=== PATIENT | male | born 1950 | race Caucasian/White ===

== ENCOUNTER → 2016-06-10 | Outpatient (CLI) | payer OTHER ==
[~2016-06-10] MED LIST: ACET-1256 PO; ASPI81TA21 PO; ATOR10TA82 PO; CALC600T9 PO; LISI10TA PO; OPTIRAY 320 IV PRN; [UNRECOGNIZED DRUG - CODE] PO
--- NOTE | 2016-06-10 12:02 | DIAGNOSTIC IMAGING REPORT ---
CHEST, ABDOMEN, and PELVIS CTA for AORTIC DISSECTION CT DOSE: 2291.43 mGy.cm HISTORY: Follow-up study. Aortic dissection repair. TECHNIQUE: Multiaxial CT images of the chest, abdomen, and pelvis were performed both before and after the intravenous administration of contrast to evaluate the aorta. Maximal intensity projection images were also obtained. COMPARISON STUDY: Chest abdomen and pelvis CTA 01/31/2016. FINDINGS: Patient is status post stent repair of a type B aortic dissection. The stent extends from the distal aortic arch through the mid descending thoracic aorta. The ascending thoracic aorta is normal in course and caliber with no evidence for dissection. No filling defects within the main pulmonary arteries to suggest pulmonary embolus. At the distal end of the aortic stent there is a focal outpouching of contrast within the false lumen. This measures 2.2 cm and is consistent with a partially opacified false lumen. The remaining portions of the false lumen of the dissection within the descending thoracic aorta and proximal abdominal aorta are thrombosed. There is additional segment of the proximal to mid abdominal aorta which opacifies the false lumen. This false lumen within the proximal abdominal aorta results in perfusion of the right renal artery. Best seen on axial image 134 of 318 within the chest there is a tiny blush of contrast within the aneurysm sac of the descending thoracic aorta at the level of the esperanza. This is consistent with a tiny type II endoleak from a small thoracic spinal vessel. Moderate focal narrowing at the origin of the celiac artery. The superior mesenteric artery, left renal artery, and inferior mesenteric artery remains patent. Aneurysmal dilatation of the proximal descending thoracic aorta remains unchanged. This measures a maximal diameter of 4.8 cm. The aneurysmal dilatation at the distal descending thoracic aorta/proximal abdominal aorta is also stable. This currently measures 4.7 cm. There is a left retroaortic renal vein. Bilateral common iliac arteries are patent. No pneumothorax or pleural effusions. The central airways are patent. No new focal lung consolidations. Multiple scattered subpleural nodules are again noted within the lung bases and along the right minor fissure. These are unchanged compared to the prior study. Dominant subpleural nodule is seen within the base of the left lower lobe and measures 6 mm. There is also stable 6 mm nodule within the right middle lobe. No acute fractures within the visualized osseous structures. No mediastinal or hilar lymphadenopathy. Multiple hypodense lesions within the liver are not significantly changed. The dominant lesion within the right hepatic lobe measures 11 mm. Prior cholecystectomy. The spleen, adrenal glands, and pancreas are unremarkable. The kidneys enhance normally. No renal stones or hydronephrosis. Normal bladder. Coarse calcifications within the prostate gland. Colonic diverticulosis. No bowel wall thickening or obstruction. IMPRESSION: 1. Patient is status post stent repair of a type B aortic dissection. The stent extends from the distal aortic arch through the mid descending thoracic aorta. The ascending thoracic aorta is normal in course and caliber with no evidence for dissection. 2. Aneurysmal dilatation at the distal aortic arch/proximal descending thoracic aorta remains unchanged. There is evidence for a tiny type II endoleak at the proximal to mid descending thoracic aorta as described above. The aneurysmal dilatation involving the distal descending thoracic aorta and proximal abdominal aorta is also stable with no evidence for an endoleak at this location. 3. The majority of the false lumen within the dissection at the descending thoracic aorta remains thrombosed. 4. No evidence for central pulmonary embolus. 5. Multiple subcentimeter bilateral nodules remain stable. Electronically signed by: Branden Pat M.D. 06/10/2016 12:00 PM Dictated Date/Time: 06/10/2016 11:33 AM
== END | disposition home or self-care (01) ==
LOC: C.CTS 10:32
PROVIDERS: ATTEND Surgery Vascular Surgery
DX: I71.4 Abdominal aortic aneurysm, without rupture (principal); I71.01 Dissection of thoracic aorta; I74.11 Embolism and thrombosis of thoracic aorta

== ENCOUNTER → 2016-07-15 | Outpatient (CLI) | payer OTHER ==
[~2016-07-15] MED LIST changes: -OPTIRAY 320 IV PRN
[2016-07-15 09:31] LABS: BASO % 0.3 %; BASO ABS # 0.02 K/uL (0-0.2); COMPLETE YES; EOS % 2.3 %; HEMATOCRIT 46.8 % (42-52); IG% 0.3 %; LYMPH % 35.3 %; LYMPH ABS # 2.75 K/uL (1.2-3.4); MEAN CELL VOLUME 89.5 fL (80-100); MEAN CORPUSCULAR HEMOGLOBIN 29.8 pg (25-34); MEAN CORPUSCULAR HGB CONC 33.3 g/dl (32-36); MEAN PLATELET VOLUME 10.6 fL (7.4-10.4); MONO % 9.4 %; NEUT % 52.4 %; PLATELET COUNT 290 K/uL (130-400); RED BLOOD COUNT 5.23 M/uL (4.7-6.1); WHITE BLOOD COUNT 7.79 K/uL (4.8-10.8)
[2016-07-15 09:54] LABS: ALT/SGPT 26 U/L (12-78); AST/SGOT 17 U/L (15-37); BLOOD UREA NITROGEN 18 mg/dl (7-18); BUN/CREATININE RATIO 20.2 (10-20); CALCIUM 9.1 mg/dl (8.5-10.1); CARBON DIOXIDE 32 mmol/L (21-32); CHLORIDE 102 mmol/L (98-107); GLUCOSE 103 mg/dl (70-99); POTASSIUM 3.9 mmol/L (3.5-5.1); SODIUM 137 mmol/L (136-145)
[2016-07-15 09:57] LABS: ALB/GLOB RATIO 1.1 (0.9-2); ALKALINE PHOSPHATASE 94 U/L (45-117); CHOLESTEROL 114 mg/dl (0-200); CHOLESTEROL/HDL RATIO 3.6; HDL CHOLESTEROL 32 mg/dl; LDL CHOLESTEROL CALCULATED 52 mg/dl; TRIGLYCERIDES 149 mg/dl (0-150); VERY LOW DENSITY LIPOPROT CALC 30 mg/dl
== END | disposition home or self-care (01) ==
LOC: C.LAB 06:35
PROVIDERS: ATTEND Internal Medicine Geriatric Medicine
DX: I10 Essential (primary) hypertension (principal); E78.5 Hyperlipidemia, unspecified; I72.3 Aneurysm of iliac artery; R73.9 Hyperglycemia, unspecified; I71.4 Abdominal aortic aneurysm, without rupture

== ENCOUNTER → 2017-01-14 | Outpatient (CLI) | payer OTHER ==
--- NOTE | 2017-01-14 11:11 | DIAGNOSTIC IMAGING REPORT ---
L-SPINE MIN 4 VIEWS ROUTINE HISTORY: 66 years-old Male M54.5 Low back [id number] acute low back pain COMPARISON: CT 06/10/2016 TECHNIQUE: 5 views of the lumbar spine FINDINGS: 5 nonrib-bearing lumbar type vertebral segments are present. No evidence of spondylolysis or spondylolisthesis. Multilevel endplate spurring and facet arthropathy with severe facet disease of the lower lumbar spine. There is unchanged 6 mm retrolisthesis L2 on L3 with unchanged severe intervertebral disc space narrowing at L4-L5 and L5-S1. Chronic 6 mm anterolisthesis L5 on S1, likely secondary to severe long-standing facet arthropathy. No acute compression deformity. Atherosclerosis of the aorta with a fusiform appearing aneurysmal dilation measuring up to 3.5 cm within the infrarenal portion. Cholecystectomy clips are noted. IMPRESSION: 1. No acute fracture or subluxation. 2. Multilevel facet arthropathy and intervertebral disc space narrowing as above appears unchanged. 3. Aneurysmal dilation of the abdominal aorta again seen, 3.5 cm. The above report was generated using voice recognition software. It may contain grammatical, syntax or spelling errors. Electronically signed by: Gray Guerrero M.D. 01/14/2017 11:09 AM Dictated Date/Time: 01/14/2017 11:06 AM
== END | disposition home or self-care (01) ==
LOC: C.RAD 10:31
PROVIDERS: ATTEND Internal Medicine Geriatric Medicine
DX: M54.5 Low back pain (principal)

== ENCOUNTER → 2017-01-28 | Outpatient (CLI) | payer OTHER ==
[2017-01-28 17:50] LABS: BASO % 0.3 %; BASO ABS # 0.02 K/uL (0-0.2); COMPLETE YES; EOS % 2.4 %; HEMATOCRIT 46.5 % (42-52); IG% 0.4 %; LYMPH % 33.2 %; LYMPH ABS # 2.62 K/uL (1.2-3.4); MEAN CELL VOLUME 90.5 fL (80-100); MEAN CORPUSCULAR HEMOGLOBIN 30.2 pg (25-34); MEAN CORPUSCULAR HGB CONC 33.3 g/dl (32-36); MEAN PLATELET VOLUME 10.5 fL (7.4-10.4); MONO % 12.1 %; NEUT % 51.6 %; PLATELET COUNT 300 K/uL (130-400); RED BLOOD COUNT 5.14 M/uL (4.7-6.1); WHITE BLOOD COUNT 7.88 K/uL (4.8-10.8)
[2017-01-28 17:50] LABS: URINE APPEARANCE CLEAR (CLEAR); URINE BILIRUBIN NEG (NEG); URINE COLOR YELLOW; URINE NITRITE NEG (NEG); URINE PH 6.5 (4.5-7.5); URINE SPECIFIC GRAVITY 1.021 (1.000-1.030); UROBILINOGEN NEG (NEG); ZZUR CULT IF INDIC CLEAN CATCH NO
[2017-01-28 17:55] LABS: MANUAL MICROSCOPIC REQUIRED? NO; REVIEW REQ? NO
[2017-01-28 17:55] LABS: BLOOD UREA NITROGEN 22 mg/dl (7-18); BUN/CREATININE RATIO 23.8 (10-20); CALCIUM 9.9 mg/dl (8.5-10.1); CARBON DIOXIDE 31 mmol/L (21-32); CHLORIDE 101 mmol/L (98-107); CREATININE 0.91 mg/dl (0.60-1.40); GLUCOSE 131 mg/dl (70-99); POTASSIUM 3.6 mmol/L (3.5-5.1); SODIUM 135 mmol/L (136-145)
[2017-01-28 18:00] LABS: PROSTATE SPECIFIC ANTIGEN 0.958 ng/ml (0.000-4.000)
[2017-01-29 06:52] LABS: ESTIMATED AVERAGE GLUCOSE 126 mg/dl; HA1C FLAG Normal (Normal)
== END | disposition home or self-care (01) ==
LOC: C.LABPBG 14:07
PROVIDERS: ATTEND Internal Medicine Geriatric Medicine
DX: I10 Essential (primary) hypertension (principal); R73.9 Hyperglycemia, unspecified; M54.5 Low back pain; I71.4 Abdominal aortic aneurysm, without rupture

== ENCOUNTER → 2017-02-06 | Outpatient (CLI) | payer OTHER ==
[~2017-02-06] MED LIST changes: +GADAVIST IV PRN; +OPTIRAY 320 IV PRN
--- NOTE | 2017-02-06 16:14 | DIAGNOSTIC IMAGING REPORT ---
ANGIO ABD/PELVIS WITH CONTRAST CLINICAL HISTORY: 66 years-old Male with AAA , LOWER BACK PAIN acute lower back pain with history of abdominal aortic aneurysm. Status post stent graft repair of a type B aortic dissection COMPARISON STUDY: CTA 06/10/2016 TECHNIQUE: Following the IV administration of 93 cc of Optiray 320, CT angiogram of the abdomen and pelvis was performed from the lung bases the proximal femora. Images are reviewed in the axial, sagittal, and coronal planes. 3-D MIPS images are created and assessed. IV contrast was administered without complication. A dose lowering technique was utilized adhering to the principles of ALARA. CT DOSE: 794.11 mGy.cm FINDINGS: CTA: The imaged pulmonary arterial tree is unremarkable. Imaged inferior cardiac chambers demonstrate no acute abnormality. Coronary arterial calcifications are noted. The imaged descending thoracic aorta appears normal in course and caliber. Partially imaged stent graft involving the descending thoracic aorta is noted. Aneurysmal dilation of the distal thoracic aorta at the level of the diaphragmatic hiatus is unchanged, 4.6 cm transversely. Type B aortic dissection with the majority of the false lumen thrombosed is again seen. Flow within the false lumen is again noted at the level of the renal arteries. The right renal artery emanates from the false lumen and the left renal artery emanates from the true lumen as does the celiac, superior mesenteric and inferior mesenteric arteries. The dissection flap extends 5.6 cm proximal to the aortic bifurcation. These findings are unchanged. Aneurysmal dilation of the infrarenal abdominal aorta is unchanged, 3.1 x 3.1 cm. At least moderate mixed plaquing of the aorta and iliofemoral vascularity is again seen. The bilateral common and external iliac arteries and image femoral arteries are patent. There is less than 50% narrowing involving the origin of the celiac trunk secondary to atherosclerotic plaquing. Superior mesenteric artery appears unremarkable. Bilateral renal arteries are widely patent. CT ABDOMEN/PELVIS: There are several scattered noncalcified pulmonary nodules of the lung bases, largest within the left lower lobe measuring up to 7 mm. Largest within the right middle lobe measure up to 4 mm. These appear stable from comparison chest CT. No pneumatosis or pneumoperitoneum. Multiple low attenuating lesions scattered throughout the liver are unchanged suggesting possible hepatic cysts. Prior cholecystectomy. The spleen, pancreas and adrenal glands are within normal limits. Minimal nonspecific symmetric bilateral perinephric stranding without renal calculi or hydronephrosis. Ureters are within normal limits. Circumferential wall thickening of the bladder with prostamegaly and central calcifications of the prostate. There is no bulky adenopathy. No bowel obstruction or focal bowel wall thickening. Mild colonic diverticulosis without diverticulitis. Soft tissues are within normal limits. Degenerative changes are seen within the lumbar spine severe intervertebral disc space narrowing at L4-L5 and L5-S1 with advanced facet arthropathy. IMPRESSION: 1. Stable exam with partially imaged endograft involving the distal descending thoracic aorta again noted status post repair of type B aortic dissection. Aneurysmal dilation of the descending thoracic aorta and abdominal aorta is unchanged. 2. The majority of the false lumen is again thrombosed with opacified false lumen noted within the upper abdomen. The right renal artery is again seen emanating from the false lumen and is patent. 3. Prostamegaly with evidence of chronic bladder outlet obstruction. 4. Mild colonic diverticulosis without diverticulitis. 5. Prior cholecystectomy. 6. Additional findings as above. The above report was generated using voice recognition software. It may contain grammatical, syntax or spelling errors. Electronically signed by: Gray Guerrero M.D. 02/06/2017 4:12 PM Dictated Date/Time: 02/06/2017 3:58 PM
--- NOTE | 2017-02-06 17:04 | DIAGNOSTIC IMAGING REPORT ---
MRI OF THE LUMBAR SPINE WITH AND WITHOUT CONTRAST CLINICAL HISTORY: Low back pain radiating into left lower extremity. Back injury in December 2016. COMPARISON STUDY: Lumbar spine radiographs January 14, 2017. TECHNIQUE: Utilizing a 1.5 Pooja magnet and dedicated coil, multiplanar, multiecho imaging of the lumbar spine was performed before and after uneventful IV administration of 9 mL of Gadavist. FINDINGS: For purposes of numbering on this exam, the L5-S1 disc space is assigned to axial image 26 of 31. There is 6 mm anterolisthesis of L5 on S1. The conus terminates at the T12-L1 level. There is no intracanalicular mass or fluid collection. No suspicious marrow replacement is present. There is marked disc space narrowing at L5-S1. A known aortic dissection with aneurysmal dilatation is better depicted on the CTA of the abdomen and pelvis performed earlier today. L1-2: The central canal and neural foramen are patent. There is mild facet arthrosis. L2-3: There is mild disc bulge. Ligamentous hypertrophy and facet arthrosis are present. Central canal and neural foramen are patent. L3-4: There is severe facet arthrosis. There is minimal disc bulge. Note is made of a small left-sided synovial cyst along the left aspect of the sac measures 8 x 3 mm. There is no significant central canal stenosis. Neural foramen are patent. L4-5: There is disc space narrowing with mild posterior disc osteophyte complex. There is moderate facet arthrosis. Central canal is patent. Neural foramen are patent. L5-S1: There is grade I anterolisthesis. Severe facet arthrosis is noted. Central canal is patent. There is moderate left and mild right neural foraminal stenosis. IMPRESSION: 1. Grade I anterolisthesis of L5 on S1 with marked disc space narrowing at L5-S1. Patent central canal. Mild multilevel disc bulges. 2. Moderate left neural foraminal stenosis at L5-S1. Otherwise, mild multilevel neural foraminal stenosis. 3. No lumbar spine compression fracture. No marrow replacement. 4. Small intracanalicular synovial cyst along the left aspect of the thecal sac at the L3-L4 level. No significant central canal narrowing. Electronically signed by: Sim Pa M.D. 02/06/2017 5:03 PM Dictated Date/Time: 02/06/2017 4:44 PM
== END | disposition home or self-care (01) ==
LOC: C.CTS 14:57
PROVIDERS: ATTEND Internal Medicine Geriatric Medicine
DX: I71.4 Abdominal aortic aneurysm, without rupture (principal); N40.1 Benign prostatic hyperplasia with lower urinary tract symptoms; N32.0 Bladder-neck obstruction; M54.5 Low back pain; K57.90 Diverticulosis of intestine, part unspecified, without perforation or abscess without bleeding

== ENCOUNTER → 2017-06-04 | Outpatient (CLI) | payer OTHER ==
[~2017-06-04] MED LIST changes: -ACET-1256 PO; +ACET-1693 PO; +ASPI-319 PO; -ASPI81TA21 PO; -GADAVIST IV PRN; -OPTIRAY 320 IV PRN; +TRAM-10 PO
[2017-06-04 09:45] LABS: BLOOD UREA NITROGEN 16 mg/dl (7-18); CREATININE 0.82 mg/dl (0.60-1.40)
== END | disposition home or self-care (01) ==
LOC: C.LAB 06:29
PROVIDERS: ATTEND Physician Assistant
DX: I71.01 Dissection of thoracic aorta (principal); I71.4 Abdominal aortic aneurysm, without rupture

== ENCOUNTER → 2017-06-11 | Outpatient (CLI) | payer OTHER ==
[~2017-06-11] MED LIST changes: +OPTIRAY 320 IV PRN
--- NOTE | 2017-06-11 08:29 | DIAGNOSTIC IMAGING REPORT ---
CHEST CTA for AORTIC DISSECTION CT DOSE: 1959.48 mGy.cm HISTORY: DISSECTION OF THORACIC AORTIC, abdominal AORTIC ANEURYSM TECHNIQUE: Multiaxial CT images of the chest were performed both before and after the intravenous administration of contrast to evaluate the aorta. Maximal intensity projection images were also obtained. A dose lowering technique was utilized adhering to the principles of ALARA. COMPARISON STUDY: Chest CTA 06/10/2016. FINDINGS: Patient is status post stent repair of a type B aortic dissection. The stent extends from the distal aortic arch through the mid descending thoracic aorta. The ascending thoracic aorta is normal in course and caliber with no evidence for dissection. No filling defects within the main pulmonary arteries to suggest pulmonary embolus. At the distal end of the aortic stent there is a focal outpouching of contrast within the false lumen. This measures 2.2 cm and is consistent with a partially opacified false lumen. The remaining portions of the false lumen of the dissection within the descending thoracic aorta and proximal abdominal aorta are thrombosed. There is additional segment of the proximal to mid abdominal aorta which opacifies the false lumen. This false lumen within the proximal abdominal aorta results in perfusion of the right renal artery. Best seen on axial image 134 of 318 within the chest there is a tiny blush of contrast within the aneurysm sac of the descending thoracic aorta at the level of the esperanza. This is consistent with a tiny type II endoleak from a small thoracic spinal vessel. Moderate focal narrowing at the origin of the celiac artery. The superior mesenteric artery, left renal artery, and inferior mesenteric artery remains patent. Aneurysmal dilatation of the proximal descending thoracic aorta has slightly increased in measure 5.1 cm. This previous measured 4.8 cm. The aneurysmal dilatation at the distal descending thoracic aorta/proximal abdominal aorta is stable. This currently measures 4.7 cm.No pneumothorax or pleural effusions. The central airways are patent. No new focal lung consolidations. Multiple scattered pulmonary nodules are again noted within the lung bases and along the right minor fissure. These are unchanged compared to the prior study. Dominant subpleural nodule is seen within the base of the left lower lobe and measures 6 mm. There is also stable 7 mm nodule within the right middle lobe. No acute fractures within the visualized osseous structures. No mediastinal or hilar lymphadenopathy. Multiple hypodense lesions within the liver are not significantly changed. Cholecystectomy. IMPRESSION: 1. Patient is status post stent repair of a type B aortic dissection. The stent extends from the distal aortic arch through the mid descending thoracic aorta. The ascending thoracic aorta is normal in course and caliber with no evidence for dissection. 2. Aneurysmal dilatation at the distal aortic arch/proximal descending thoracic aorta is again noted. This has slightly progressed at the distal aortic arch which currently measures 5.1 cm, previously measuring 4.8 cm. Although not currently seen on this study due to the lack of delayed sequences, there was a previously described type II endoleak at this location which may account for the slight growth of the aneurysmal sac. The aneurysmal dilatation involving the distal descending thoracic aorta and proximal abdominal aorta remains unchanged. 3. The majority of the false lumen within the dissection at the descending thoracic aorta remains thrombosed. 4.Multiple subcentimeter bilateral pulmonary nodules remain stable. Electronically signed by: Branden Pat M.D. 06/11/2017 8:27 AM Dictated Date/Time: 06/11/2017 8:05 AM
--- NOTE | 2017-06-11 08:31 | DIAGNOSTIC IMAGING REPORT ---
ANGIO ABD/PELVIS COMBO CLINICAL HISTORY: 67 years-old Male presenting with DISSECTION OF THORACIC Aortic, abd AORTIC ANEURYSM. TECHNIQUE: Multidetector CT angiography of the abdomen and pelvis was performed after the administration of intravenous contrast. 3-D volumetric and/or maximum intensity projection (MIP) images were subsequently reconstructed for review. IV contrast: 93 mL of Optiray 320. A dose lowering technique was used consistent with the principles of ALARA (as low as reasonably achievable). Stenosis measurements were based on NASCET-like criteria. COMPARISON: 02/06/2017. CT DOSE (mGy.cm): The estimated cumulative dose is 1959.48. 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 Cholecystectomy clips. Vasculature: Aorta: Diffuse atherosclerotic disease. Chronic dissection of the thoracoabdominal aorta. The maximum diameter measures 4.1 cm, previously 4.5 cm. The false lumen is occluded from the aortic hiatus to the level of the right renal artery, where the false lumen is opacified with contrast. The false lumen remains partially opacified to the level of the L3 lumbar arteries. Below this level, the dissection flap terminates. Ectasia of the abdominal aorta immediately proximal to the bifurcation, measuring 2.1 cm in diameter. Multifocal areas within the false lumen of hyperdensity suggesting partial filling via collateral vessels. This is similar to prior exam. Celiac artery: Patent arising from the true lumen. Superior mesenteric artery: Patent arising from the true lumen. Inferior mesenteric artery: Patent arising from the true lumen. Right renal artery: Single right main renal artery arises from the false lumen and is patent. Minimal stenosis at the origin (less than 25%). Left renal artery: Single left main renal artery is patent arising from the true lumen. Right iliac arteries: Penetrating ulcer arising from the posterior medial aspect of the right common iliac artery projecting 8 mm beyond the expected contour of the parent vessel and measuring 11 mm in width (series 9 image 325). This is similar to prior exam. Right internal and external iliac arteries patent. Right femoral arteries: Common, superficial, and deep femoral arteries patent. Left iliac arteries: Left common, internal, and external iliac arteries patent. Left femoral arteries: Common, superficial, and deep femoral arteries patent. Remaining abdomen and pelvis: Lung bases: Minimal basilar opacities, likely atelectasis. Normal heart size. Coronary artery calcification. No pericardial or pleural effusion. Liver: Normal morphology. Allowing for early arterial phase of contrast, multiple well-defined hypodensities throughout the liver suggestive of hepatic cysts or hamartomas. These are unchanged from prior. Conventional hepatic arterial anatomy Biliary: Mild biliary ductal prominence likely a reservoir effect in the post cholecystectomy state. Gallbladder surgically absent. Pancreas: Mild parenchymal atrophy. Spleen: Normal. Adrenal glands: Normal. Kidneys and ureters: Normal. No hydronephrosis. Bladder: Incompletely evaluated secondary to underdistention. Pelvic organs: Prostate enlargement likely secondary to benign prostatic hyperplasia. Bowel: Normal. No bowel obstruction. Peritoneal cavity: No free fluid or intraperitoneal gas. Lymph nodes: No enlarged lymph nodes in the abdomen or pelvis. Abdominal wall: Small fat-containing right inguinal hernia. Musculoskeletal: Degenerative changes of the spine. 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 The false lumen remains patent at the level of the right renal artery, which is the only main vessel to arise from the false lumen. Overall aneurysmal dilatation of the aorta is unchanged from prior. 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 Electronically signed by: Ministerio Verduzco M.D. 06/11/2017 8:30 AM Dictated Date/Time: 06/11/2017 8:12 AM
== END | disposition home or self-care (01) ==
LOC: C.CTS 07:06
PROVIDERS: ATTEND Physician Assistant
DX: I71.01 Dissection of thoracic aorta (principal); I71.4 Abdominal aortic aneurysm, without rupture

== ENCOUNTER 2017-07-03 11:59 | Emergency (ER) | payer OTHER ==
[~2017-07-03] VITALS: Ht 182.9 cm; Wt 93.3 kg
[~2017-07-03 11:59] MED LIST changes: +ACET-1256 PO; -ACET-1693 PO; -OPTIRAY 320 IV PRN; -TRAM-10 PO
[2017-07-03 12:01] VITALS: Ht 182.9 cm; Wt 93.3 kg
[2017-07-03 12:36] VITALS: O2SAT 98
[2017-07-03] MEDS ORDERED: ONDANSETRON INJ 2 MG/ML 2 ML VIAL IV STA (12:50)
--- NOTE | 2017-07-03 13:12 | DIAGNOSTIC IMAGING REPORT ---
SINGLE VIEW CHEST CLINICAL HISTORY: Dyspnea. FINDINGS: An AP, portable, upright chest radiograph is compared to study dated 03/06/2015. The examination is degraded by portable technique and patient rotation. The cardiac silhouette is normal for projection. The pulmonary vasculature is noncongested. A stent graft is noted in the thoracic aorta which appears ectatic. There is minimal bibasilar atelectasis. The lungs and pleural spaces are otherwise clear. No pneumothorax is seen. The skeletal structures are osteopenic. The bony thorax is grossly intact. IMPRESSION: No acute cardiopulmonary abnormality. Electronically signed by: Aristides Hendrickson M.D. 07/03/2017 1:10 PM Dictated Date/Time: 07/03/2017 1:09 PM
[2017-07-03 13:13] LABS: BASO % 0.1 %; BASO ABS # 0.01 K/uL (0-0.2); EOS % 0.9 %; EOS ABS # 0.08 K/uL (0-0.5); HEMATOCRIT 43.7 % (42-52); HEMOGLOBIN 15.5 g/dL (14.0-18.0); IG# 0.06 K/uL (0.00-0.02); LYMPH % 16.9 %; LYMPH ABS # 1.54 K/uL (1.2-3.4); MEAN CELL VOLUME 90.1 fL (80-100); MEAN CORPUSCULAR HGB CONC 35.5 g/dl (32-36); MEAN PLATELET VOLUME 9.7 fL (7.4-10.4); MONO % 9.8 %; MONO ABS # 0.89 K/uL (0.11-0.59); NEUT % 71.6 %; NEUT ABS # 6.52 K/uL (1.4-6.5); PLATELET COUNT 245 K/uL (130-400); RED CELL DISTRIBUTION WIDTH CV 12.9 % (11.5-14.5); RED CELL DISTRIBUTION WIDTH SD 42.7 fL (36.4-46.3)
[2017-07-03 13:19] LABS: PTT PATIENT 25.4 SECONDS (21.0-31.0)
[2017-07-03 13:21] LABS: BLOOD UREA NITROGEN 16 mg/dl (7-18); CALCIUM 9.7 mg/dl (8.5-10.1); CARBON DIOXIDE 28 mmol/L (21-32); CREATININE 0.83 mg/dl (0.60-1.40); GLUCOSE 119 mg/dl (70-99); POTASSIUM 3.7 mmol/L (3.5-5.1); SODIUM 137 mmol/L (136-145)
[2017-07-03 13:22] LABS: ISTAT CREATININE 0.7 mg/dl (0.6-1.3); ISTAT IONIZED CALCIUM 1.2 mmol/l (1.12-1.32); ISTAT POTASSIUM 3.5 mEq/L (3.3-5.0)
--- NOTE | 2017-07-03 13:28 | EMERGENCY ROOM VISIT NOTE ---
History Report prepared by Jocelyn: Edilberto Cohn Under the Supervision of: Dr. Robles Nelson M.D. First contact with patient: 12:33 Chief Complaint: SHORTNESS OF BREATH Stated Complaint: SWEATING AND SOB Nursing Triage Summary: pt reports being on gabapentinb tid and last taken friday night ran out did not call them in until this am. feels "funny" trouble getting breath while lying down intermittently. denies any swelling in ext. goes to pain management for back pain. has hx of aortic disection with stents placed History of Present Illness The patient is a 67 year old white male with a past medical history of a dissection with repair and cardiac stent placement and bypass graft, who presents to the Emergency Room with complaints of shortness of breath that was first noticed this morning. The patient states that this morning he intermittently felt the need to "take a deep breath." He denies any chest pain, nausea, or vomiting, but does note that he got swaty. The patient does have a history of dissection, but notes that these symptoms are not similar to what he felt on that episode. The patient does note that he takes Gabapentin daily, and ran out of this prescription on Friday night. Source of History: patient Onset: This morning Position: chest Quality: other (SOB) Timing: intermittent Associated Symptoms: + diaphoresis, No chest pain, No nausea, No vomiting Review of Systems See HPI for pertinent positives and negatives. A total of ten systems were reviewed and were otherwise negative. Past Medical & Surgical Medical Problems: (1) Aneurysm Surgical Problems: (1) Hx of heart artery stent Family History No significant family history Social History Smoking Status: Never Smoker Alcohol Use: none Drug Use: none Marital Status: Housing Status: lives with significant other Occupation Status: retired Current/Historical Medications Scheduled Aspirin Enteric Coated (Ecotrin Or Generic), 81 MG PO QAM Atorvastatin (Lipitor), 10 MG PO QAM Calcium Carbonate-Vitamin D (Calcium + D), 600 MG PO QAM Chlorthalidone/Atenolol (Atenolol/Chlorthalidone 100/25MG), 1 TAB PO QAM Lisinopril (Prinivil), 20 MG PO BID Scheduled PRN Acetaminophen (Tylenol), 1,000 MG PO TID PRN for Pain Allergies Coded Allergies: Labetalol (Verified Allergy, Intermediate, itching and rash, 07/03/17) Losartan (Verified Allergy, Unknown, ITCHING, 07/03/17) Thiazide-Type Diuretics (Verified Allergy, Unknown, SEVERE ITCHING, 07/03/17 ) Sulfa Antibiotics (Verified Adverse Reaction, Mild, GI DISTRESS, 07/03/17) Physical Exam Vital Signs Date Time Temp Pulse Resp B/P (MAP) Pulse Ox O2 Delivery O2 Flow Rate FiO2 07/03/17 16:15 82 20 119/67 91 07/03/17 15:19 71 16 106/64 96 Room Air 07/03/17 14:24 36.7 69 18 136/86 96 Room Air 07/03/17 13:55 67 20 127/77 95 Room Air 07/03/17 13:15 66 18 133/70 94 Room Air 07/03/17 12:47 66 07/03/17 12:36 98 Room Air 07/03/17 12:01 36.6 73 18 127/81 98 Room Air Physical Exam GENERAL: Awake, alert, well-appearing, NAD HENT: Normocephalic, atraumatic. EYES: Normal conjunctiva. Sclera non-icteric. PERRL. No anisocoria. NECK: Supple. No nuchal rigidity. FROM. RESPIRATORY: CTAB, no rhonchi, wheezing, crackles CARDIAC: RRR, no MRG ABDOMEN: Soft, NTND, BS+ MSK: No chest wall TTP, no LE edema. Negative Jocy's sign. NEURO: GCS 15, CN 2-12 intact, moves all 4s on command SKIN: No rash or jaundice noted. Medical Decision & Procedures ER Provider Diagnostic Interpretation: Radiology results as stated below per my review and radiologist interpretation: SINGLE VIEW CHEST CLINICAL HISTORY: Dyspnea. FINDINGS: An AP, portable, upright chest radiograph is compared to study dated 03/06/2015. The examination is degraded by portable technique and patient rotation. The cardiac silhouette is normal for projection. The pulmonary vasculature is noncongested. A stent graft is noted in the thoracic aorta which appears ectatic. There is minimal bibasilar atelectasis. The lungs and pleural spaces are otherwise clear. No pneumothorax is seen. The skeletal structures are osteopenic. The bony thorax is grossly intact. IMPRESSION: No acute cardiopulmonary abnormality. Electronically signed by: Aristides Hendrickson M.D. 07/03/2017 1:10 PM Dictated Date/Time: 07/03/2017 1:09 PM Laboratory Results 07/03/17 12:46 Red Blood Count 4.85, Mean Corpuscular Volume 90.1, Mean Corpuscular Hemoglobin 32.0, Mean Corpuscular Hemoglobin Concent 35.5, Mean Platelet Volume 9.7, Neutrophils (%) (Auto) 71.6, Lymphocytes (%) (Auto) 16.9, Monocytes (%) (Auto) 9.8, Eosinophils (%) (Auto) 0.9, Basophils (%) (Auto) 0.1, Neutrophils # (Auto) 6.52, Lymphocytes # (Auto) 1.54, Monocytes # (Auto) 0.89, Eosinophils # (Auto) 0.08, Basophils # (Auto) 0.01 07/03/17 12:46 Test 07/03/17 12:46 07/03/17 13:09 07/03/17 13:42 07/03/17 15:24 White Blood Count 9.10 K/uL (4.8-10.8) Red Blood Count 4.85 M/uL (4.7-6.1) Hemoglobin 15.5 g/dL (14.0-18.0) Hematocrit 43.7 % (42-52) Mean Corpuscular Volume 90.1 fL (80-100) Mean Corpuscular Hemoglobin 32.0 pg (25-34) Mean Corpuscular Hemoglobin Concent 35.5 g/dl (32-36) Platelet Count 245 K/uL (130-400) Mean Platelet Volume 9.7 fL (7.4-10.4) Neutrophils (%) (Auto) 71.6 % Lymphocytes (%) (Auto) 16.9 % Monocytes (%) (Auto) 9.8 % Eosinophils (%) (Auto) 0.9 % Basophils (%) (Auto) 0.1 % Neutrophils # (Auto) 6.52 K/uL (1.4-6.5) Lymphocytes # (Auto) 1.54 K/uL (1.2-3.4) Monocytes # (Auto) 0.89 K/uL (0.11-0.59) Eosinophils # (Auto) 0.08 K/uL (0-0.5) Basophils # (Auto) 0.01 K/uL (0-0.2) RDW Standard Deviation 42.7 fL (36.4-46.3) RDW Coefficient of Variation 12.9 % (11.5-14.5) Immature Granulocyte % (Auto) 0.7 % Immature Granulocyte # (Auto) 0.06 K/uL (0.00-0.02) Prothrombin Time 10.8 SECONDS (9.0-12.0) Prothromb Time International Ratio 1.0 (0.9-1.1) Activated Partial Thromboplast Time 25.4 SECONDS (21.0-31.0) Partial Thromboplastin Ratio 1.0 Est Creatinine Clear Calc Drug Dose 101.1 ml/min Estimated GFR () 104.8 Estimated GFR (Non- 90.4 BUN/Creatinine Ratio 19.8 (10-20) Calcium Level 9.7 mg/dl (8.5-10.1) Troponin I < 0.015 ng/ml (0-0.045) Pro-B-Type Natriuretic Peptide 41 pg/ml (0-900) Bedside Hemoglobin 14.6 g/dl (14.0-18.0) Bedside Hematocrit 43 % (42-52) Bedside Sodium 139 mEq/L (135-144) Bedside Potassium 3.5 mEq/L (3.3-5.0) Bedside Chloride 101 mEq/L (101-112) Bedside Total CO2 26 mEq/l (24-31) Anion Gap 18.0 mmol/L (16-25) Bedside Blood Urea Nitrogen 16 mg/dl (7-18) Bedside Creatinine 0.7 mg/dl (0.6-1.3) Bedside Glucose (other) 119 mg/dl (70-99) Bedside Ionized Calcium (Chey) 1.20 mmol/l (1.12-1.32) Venous Blood pH 7.44 (7.36-7.41) Venous Blood Partial Pressure CO2 41 mmHg (38.0-50.0) Venous Blood Partial Pressure O2 35 mmHg Venous Blood HCO3 27 mmol/L Venous Blood Oxygen Saturation 67.1 % Venous Blood Base Excess 2.9 mEq/L Lactic Acid Level 0.9 mmol/L (0.4-2.0) Bedside Troponin I < 0.030 ng/ml (0-0.045) Laboratory results reviewed by me Medications Administered Medications (Trade) Dose Ordered Sig/Katie Route Start Time Stop Time Status Last Admin Dose Admin Ondansetron HCl (Zofran Inj) 4 mg NOW STAT IV 07/03/17 12:50 07/03/17 12:52 DC 07/03/17 13:05 4 MG Acetaminophen (Tylenol Tab) 1,000 mg STK-MED ONCE .ROUTE 07/03/17 13:55 07/03/17 13:56 DC 07/03/17 13:57 1,000 MG Miscellaneous Information (Nursing Verbal Med Order) 1 ea ONE ONCE N/A 07/03/17 14:00 07/03/17 14:01 DC 07/03/17 13:58 1 EA ECG Per My Interpretation Indication: SOB/dyspnea Rate (beats per minute): 60 Rhythm: normal sinus Findings: no ectopy, other (Normal intervals, normal axis, no STS changes or TWI) ED Course 1242: The patient was evaluated in room B9. A complete history and physical exam was performed. 1444: I checked on the patient. He feels well. 1608: I reevaluated the patient. Discussed results and discharge instructions: He verbalized understanding and agreement. The patient is ready for discharge. Medical Decision The patient is a 67 year old white male with a past medical history of a dissection with repair and cardiac stent placement and bypass graft, who presents to the Emergency Room with complaints of shortness of breath that was first noticed this morning. Nursing notes reviewed. Ancillary studies and prior records reviewed. Differential diagnosis: Etiologies such as infections, reactive airway disease, pneumonia, pneumothorax , COPD, CHF, cardiac ischemia, pulmonary embolism, musculoskeletal, gastrointestinal, as well as others were entertained. Patient was seen and evaluated the bedside. Patient does have a prior history of an aortic dissection status post repair was a type B dissection which was repaired at [place]. Patient was recently seen and did have a CT scan and was given a relatively clean bill of health so to speak by Dr. Mccain with the vascular surgeons here at [facility]. The patient was complaining of some shortness of breath. No prior history of DVT or PE. No recent prolonged car or plane travel. Patient is not taking blood thinning medications. Patient is currently asymptomatic and denies any chest pains or shortness of breath. He did have a brief episode of some sweatiness. Patient did have blood work completed, EKG, troponin, chest x-ray the patient was given some IV fluids. Patient was feeling again fairly well. The patient had had some chronic back pain. He has received injections in the past. He did have a repeat troponin greater than 4 hours since the symptom onset of shortness of breath with a negative troponin. Given the patient's negative troponin x2 with a nonischemic EKG less likely ACS. We discussed possibility of blood clots however the patient has no other high risk features and has a well score 0. Less likely PE. Given the fact that the chest x-ray does not show any acute change in the graft and that the patient otherwise had a fairly normal CT scan last month and was seen by Dr. Mccain less likely problem with his prior dissection and graft. He was deemed suitable for outpatient follow-up and treatment at this time. Patient was given strict follow-up, discharge, and return precautions. All questions were answered. Patient was deemed suitable for outpatient follow-up at this time. Patient agreed with the plan of care and was safely discharged home. Medication Reconcilliation Current Medication List: was personally reviewed by me Blood Pressure Screening Patient's blood pressure: Normal blood pressure Impression Primary Impression: SOB (shortness of breath) Scribe Attestation The scribe's documentation has been prepared under my direction and personally reviewed by me in its entirety. I confirm that the note above accurately reflects all work, treatment, procedures, and medical decision making performed by me. Departure Information Dispostion Home / Self-Care Referrals Ld Hurtado M.D. (PCP) Patient Instructions ED Dyspnea Shortness of Breath, My [facility] Additional Instructions Please return to the emergency department if you have worsening or recurrent symptoms not amenable to at-home treatment. Please call for a follow-up appointment with her primary care physician. Please take your medications as prescribed. If you have other concerns and/or complaints please feel free to also call your primary care physician's office or return the ED for further evaluation, management, and treatment. Take your medications as prescribed. You have been examined and treated today on an emergency basis only. This is not a substitute for, or an effort to provide, complete comprehensive medical care. It is impossible to recognize and treat all injuries or illnesses in a single emergency department visit. It is therefore important that you follow up closely with [facility], your PCP, and/or your specialist(s). Call as soon as possible for an appointment. Thank you for your time and consideration. I look forward to speaking with you again soon. Please don't hesitate to call us if you have any questions.
[2017-07-03] MEDS ORDERED: ACETAMINOPHEN 500 MG TAB ONE (13:55)
[2017-07-03] MEDS ORDERED: NURSING VERBAL MED ORDER ONE (14:00)
[2017-07-03 14:24] VITALS: TEMP 36.7
[2017-07-03 16:15] VITALS: BP 119/67; PULSE 82; O2SAT 91
== END 2017-07-03 16:16 | disposition home or self-care (01) ==
LOC: C.EDB 12:00
DX: R06.02 Shortness of breath (principal); Z79.82 Long term (current) use of aspirin; Z79.899 Other long term (current) drug therapy; Z88.2 Allergy status to sulfonamides; Z88.8 Allergy status to other drugs, medicaments and biological substances

== ENCOUNTER 2020-07-05 08:16 | Inpatient (IN) ==
--- NOTE | 2020-06-27 09:09 | PAT Medication Instructions ---
Medication Instructions Date of Service June 27, 2020 Home Medications Medication Instructions Recorded lisinopril 20 mg tablet 20 mg PO BID #180 tab 04/25/20 amoxicillin 500 mg capsule 500 mg PO QID PRN aspirin 81 mg tablet 81 mg PO QAM lisinopril 20 mg tablet 20 mg PO BID atenolol-chlorthalidone 1 tab PO QAM atorvastatin 10 mg PO QAM calcium carbonate-vitamin D3 [Calcium 600 + D(3)] 1 tab PO QAM Continue as directed amoxicillin 500 mg capsule 500 mg PO QID PRN (prior to dental procedures) ASK your prescriber and surgeon aspirin 81 mg tablet 81 mg PO QAM DO NOT take the morning of surgery lisinopril 20 mg tablet 20 mg PO BID calcium carbonate-vitamin D3 [Calcium 600 + D(3)] 1 tab PO QAM Take morning of surgery With a small sip of water, OTHERWISE NOTHING TO EAT OR DRINK AFTER MIDNIGHT: atenolol-chlorthalidone 1 tab PO QAM atorvastatin 10 mg PO QAM Take evening before surgery lisinopril 20 mg tablet 20 mg PO BID Other Notes If you have any questions please call us at [phone] or [phone] or [phone] or [phone]
--- NOTE | 2020-06-30 10:47 | Anesthesiology Consultation ---
Date of Service June 30, 2020 Assessment & Plan (1) Encounter for pre-operative examination: - COVID screening: Per assessment on 06/30: Travel screen negative, no known COVID-19 positive contacts or current COVID-19 related symptoms. Surgeon arrange d preop COVID testing (done/to be done at surgeon's office 06/30) . Awaiting results. - Check BSG AM DOS - ASA instructions: to be continued perioperatively per surgeon - Case reviewed with Dr. Dumont. Chart Review Chart Review: Acceptable Risk for Surgery and Patient seen in Pre Admission Testing Teaching & Discussion Pre-Anesthesia Teaching/Discussion Notes: Instructed NPO after midnight before surgery,except medications with 15 cc of water. Medication instructions provided according to the PAT guidelines. History Surgery Operation Date: 07/05/20 10:05 Proposed Procedures p Thoracic Endovascular Aneurysm Repair - Quique Mccain MD Height/Weight Height: 6 ft Weight: 95.6 kg Allergies Allergy/AdvReac Type Severity Reaction Status Date / Time labetalol Allergy Intermediate Itching, Verified 06/26/20 10:43 rash gabapentin Allergy Unknown Chest Verified 06/26/20 08:30 pain, SOB losartan Allergy Unknown Itching Verified 06/26/20 10:43 Thiazides Allergy Unknown Severe Verified 06/26/20 10:43 itching Sulfa (Sulfonamide AdvReac Mild GI distress Verified 06/26/20 10:43 Antibiotics) Medications Home Medications Medication Instructions Recorded Confirmed Last Taken amoxicillin 500 mg capsule 500 mg PO QID PRN 03/02/19 06/26/20 Unknown aspirin 81 mg tablet 81 mg PO QAM 03/02/19 06/26/20 Unknown lisinopril 20 mg tablet 20 mg PO BID #180 tab 04/25/20 06/26/20 Unknown atenolol-chlorthalidone 1 tab PO QAM 06/26/20 06/26/20 Unknown atorvastatin 10 mg PO QAM 06/26/20 06/26/20 Unknown calcium carbonate-vitamin D3 1 tab PO QAM 06/26/20 06/26/20 Unknown [Calcium 600 + D(3)] Past Medical History Medical History (Updated 06/30/20 @ 10:44 by Katiuska Smith) Gout Hyperlipidemia Hypertension Lumbar degenerative disc disease Osteoarthritis, knee Pain management Knee + back injections (Dr. Blackwood) Seborrheic keratosis Thoracic aortic aneurysm s/p endovascular repair ([facility] [place]), now with aneurysmal degeneration of the d escending thoracic aorta distal to the previously placed endograft Type 2 diabetes mellitus Diet "control" > although most recent [id number] 03/10/20 as elevated at 7.4% Urinary calculus Exercise / Class Metabolic Activity II 4-5 Yardwork/Stairs/Walk up hill Past Family History Family History Brother Aneurysm of abdominal aorta Sister Cerebral aneurysm Father Diabetes Malignant melanoma of skin Mother No problems noted. Denies family history of Ovarian cancer Prostate cancer Breast cancer Colorectal cancer Past Surgical History Surgical History (Updated 06/29/20 @ 11:53 by Katiuska Smith) Amputation of right index finger Industrial accident H/O prostate biopsy History of aortic aneurysm repair TAA repair ([facility] [place]) History of appendectomy History of bunionectomy Left foot History of cataract surgery R/L History of cholecystectomy History of colonoscopy History of lithotripsy Past Anesthesia History No Hx of Anesthesia Complications and No Family Hx of Anesthesia Complications Social History Smoking Status: Former smoker tobacco type: cigarettes Smoking cigarettes per day: 40 Do You Dip or Chew Tobacco: No Smoking End Date: 30 yrs ago Hx Alcohol Use: No Hx Substance Use: No substance use type: does not use Review of Systems No snoring. Patient denies chest pain, shortness of breath, dyspnea on exertion, fever, chills, cough, wheezing, palpitations. Physical Exam Vital Signs VITALS BP 120/73 P 58 TEMP 97.9 SP02 98%RA RESP 16 PHYSICAL Full cervical extension range of motion. Full TMJ range of motion. TMD 3 finger breaths Mallampati Score 2 Dentition: full denture upper, 9 remaining lower teeth Lungs: clear throughout to auscultation Cardiac: regular rate and rhythm, no murmurs noted Spine: normal Carotid arteries: negative bruit Extremities: no edema, right 2nd digit partial amputation Testing Laboratory Results 06/30/20 11:18 06/30/20 11:18 PT 10.2 Seconds (9.0-12.0) 06/30/20 11:18 INR 1.0 (0.9-1.1) 06/30/20 11:18 APTT 26.8 Seconds (21.0-31.0) 06/30/20 11:18 Blood Type O Positive 06/30/20 11:18 Antibody Screen NEGATIVE 06/30/20 11:18 Electrocardiogram Date: 06/30/20 Findings: + SB @ (53) No significant change compared to 07/03/17 EKG per director of property management review. Other Testing Chest CTA (06/12/20): Chronic Michale type B dissection with prior stent repair. There is increased size of the fusiform aneurysmal dilation of the descending thoracic aorta now up to 5.6 cm, previously 5.1 cm with increased diameter of the contrast-filled saccular outpouching now measuring 3.5 cm, previously 2.7 cm. This is suggestive of increased size of the chronic false lumen. The abdominal aortic aneurysm is unchanged in size. 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 Moderate coronary artery calcifications. No pneumothorax, pleural effusion or overt pulmonary edema. Mild dependent right lung base groundglass densities suggestive of atelectasis. 7 mm subpleural solid nodule of the left lower lobe, image 150 is unchanged. There is an adjacent centrally calcified 6 mm solid nodule of the left lower lobe on image 149. A few additional unchanged solid pulmonary nodules of the lung bases measure up to 4 mm. Probable lymph node of the right lower lobe measures 1.3 cm, in retrospect previously measured 10 mm. Central airways are patent.
[2020-06-30 13:15] LABS: Basophils # (auto) 0.02 K/uL (0-0.2); Basophils % (auto) 0.2 %; Eosinophils # (auto) 0.14 K/uL (0-0.5); Eosinophils % (auto) 1.7 %; Hematocrit (blood only) 45.6 % (42-52); Immature Granulocytes # (auto) 0.02 K/uL (0.00-0.02); Immature Granulocytes % (auto) 0.2 %; Lymphocytes # (auto) 3.24 K/uL (1.2-3.4); Lymphocytes % (auto) 40.1 %; Mean Corpuscular Hgb Conc 35.1 g/dL (32-36); Mean Corpuscular Volume 88.4 fL (80-100); Mean Platelet Volume 10.9 fL (7.4-10.4); Monocytes # (auto) 0.85 K/uL (0.11-0.59); Monocytes % (auto) 10.5 %; Neutrophils # (auto) 3.81 K/uL (1.4-6.5); Neutrophils % (auto) 47.3 %; Platelet Count 365 K/uL (130-400); RDW Coefficient of Variation 13.2 % (11.5-14.5); RDW Standard Deviation 43.2 fL (36.4-46.3); Red Blood Count 5.16 M/uL (4.7-6.1); White Blood Count 8.08 K/uL (4.8-10.8)
[2020-06-30 13:31] LABS: Partial Thromboplastin Time 26.8 Seconds (21.0-31.0); Prothrombin Time 10.2 Seconds (9.0-12.0)
[2020-06-30 13:39] LABS: Calcium 10.4 mg/dl (8.5-10.1); Creatinine Clr Calc Pharmacy 92.3 ml/min; Est GFR (African American) 100.2; Est GFR (Non-African American) 86.4; Potassium 4.3 mmol/L (3.5-5.1)
--- NOTE | 2020-06-30 13:45 | Electrocardiogram Report ---
Test Reason : Blood Pressure : / mmHG Vent. Rate : 053 BPM Atrial Rate : 053 BPM P-R Int : 148 ms QRS Dur : 104 ms QT Int : 436 ms P-R-T Axes : 037 001 041 degrees QTc Int : 409 ms Sinus bradycardia Otherwise normal ECG When compared with ECG of 03-JUL-2017 12:33, No significant change was found Confirmed by Tyler Moralez ([id number]) on 06/30/2020 1:45:10 PM Referred By: Quique Mccain Confirmed By:Tyler Moralez
--- NOTE | 2020-07-04 12:29 | History & Physical Report ---
Date of Service July 04, 2020 Assessment & Plan (1) Thoracic aortic aneurysm: Patient is admitted for endovascular extension of his previous endograft repair. I have discussed the risks options and benefits of the procedure with the patient. The patient understands the risks options and benefits and agrees to the procedure. History of Present Illness Primary Care Provider: Ivonne Pa MD * Final Report * June 19, 2020 Name: YVETTE HERNANDEZ [facility] Number: [id number] : 1950 Date of Service: 06/19/2020 Ivonne Pa MD [address] [place] [id number] 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 As you know, he had an acute descending type B aortic dissection in 2011, which was treated down at [place] by Dr. Alyssa Mckinney. Since Dr. Mckinney his left and Yvette lives closer to [place], he has been following with us. He states that since we have last seen him, he has not had any acute health issues, though he does have continued osteoarthritis of his knees and low back. In relation to his aneurysm, he does have some upper thoracic back pain that he notes in his recliner from time to time. On physical exam, Mr. Hernandez is well-appearing. His blood pressure is 124/68 on the left and 118/64 on the right. He is saturating at 96% on room air. His lungs are clear. Heart rate is 63 with a regular rate and rhythm. He weighs 95.9 kilograms. His head is normocephalic, atraumatic. He is in no acute distress. His neck is supple. His chest rise is equal bilaterally. His abdomen is soft, nontender, nondistended. His radial pulses are 2+ bilaterally as are his femoral and posterior tibial pulses. On a CAT scan performed prior to today's appointment, he has aneurysmal degeneration of the descending thoracic aorta distal to the previously placed endograft. We discussed surgical options and the patient is agreeable to proceeding with extension of the thoracic endograft. We will plan to do this in the coming weeks. If you have any questions or concerns regarding his care, please do not hesitate to contact us. Thank you for allowing us to participate in the care of your patient. #[id number] I saw and evaluated the patient. Discussed with the resident and agree with the resident's findings and plan as documented in the resident's note. Signature Line Electronic Signature on File CC: Ivonne Pa MD [address] [place] [address] [id number] * Azucena Gunn MD Author Signature Dt/Tm: 06/26/2020 02:50 PM Resident Division of Vascular Surgery Electronically Reviewed/Signed by: Quique Mccain MD Cosigner Signature Dt/Tm: 06/20/2020 02:29 PM Side Seam Tender Darrin Zabala [facility] [place] [address] [place] [address] RES /RMG Result Type: .Outpt Ltr Date of Service: June 19, 2020 00:00 EDT Authorization Status: Final Subject: Outpatient Letter Author or Import Date: MD Velia, Azucena Pérez on June 19, 2020 13:52 EDT Verified By: MD Kalyn, Quique Franco on June 20, 2020 14:29 EDT Encounter info: [id number], [facility], Clinic, 06/19/2020 - 06/19/2020 Contributor system: [id number] Allergies Allergy/AdvReac Type Severity Reaction Status Date / Time gabapentin Allergy Intermediate Chest Verified 06/30/20 16:23 pain, SOB labetalol Allergy Intermediate Itching, Verified 06/26/20 10:43 rash losartan Allergy Intermediate Itching Verified 06/30/20 16:23 Thiazides Allergy Intermediate Severe Verified 06/30/20 16:23 itching Sulfa (Sulfonamide AdvReac Mild GI distress Verified 06/26/20 10:43 Antibiotics) Home Medications Medication Instructions Recorded Confirmed Type amoxicillin 500 mg capsule 500 mg PO QID PRN 03/02/19 06/26/20 History aspirin 81 mg tablet 81 mg PO QAM 03/02/19 06/26/20 History lisinopril 20 mg tablet 20 mg PO BID #180 tab 04/25/20 06/26/20 Rx atenolol-chlorthalidone 1 tab PO QAM 06/26/20 06/26/20 History atorvastatin 10 mg PO QAM 06/26/20 06/26/20 History calcium carbonate-vitamin D3 1 tab PO QAM 06/26/20 06/26/20 History [Calcium 600 + D(3)] Past Med/Surg History Medical History Gout Hyperlipidemia Hypertension Lumbar degenerative disc disease Osteoarthritis, knee Pain management Knee + back injections (Dr. Blackwood) Seborrheic keratosis Thoracic aortic aneurysm s/p endovascular repair ([facility]), now with aneurysmal degeneration of the descending thoracic aorta distal to the previously placed endograft Type 2 diabetes mellitus Diet "control" > although most recent hgba1c 03/10/20 as elevated at 7.4% Urinary calculus Surgical History Amputation of right index finger Industrial accident H/O prostate biopsy History of aortic aneurysm repair TAA repair ([facility]) History of appendectomy History of bunionectomy Left foot History of cataract surgery R/L History of cholecystectomy History of colonoscopy History of lithotripsy Family History Brother Aneurysm of abdominal aorta Sister Cerebral aneurysm Father Diabetes Malignant melanoma of skin Mother No problems noted. Denies family history of Ovarian cancer Prostate cancer Breast cancer Colorectal cancer Social History Smoking Status: Former smoker Age Quit Using Tobacco: 30; packs per day: 2; Cigarettes Per Day: 40; Smoking End Date: 30 yrs ago; Second Hand Exposure: No; Do You Dip or Chew Tobacco: No; Tobacco Cessation Education Requested by Patient: No Hx Alcohol Use: No Hx Substance Use: No Preferred Language: Andorran Communication Ability: Effective Visual Impairment: No Limitations Hearing Ability: Normal Ticket Broker Required: No Beliefs That Will Affect Care: None marital status: Current Living Situation: Spouse current occupational status: retired Other Information That Helps Us Care for You: No Feels Safe at Home: Yes Safety Concerns: Feels Safe At This Time Dental Care, Regularly: Yes Physical Activity Frequency: Does not Exercise Seatbelt Use: always Assistive Devices: Denture - Upper and Glasses Review of Systems All systems reviewed & are unremarkable except as noted in HPI & below
[~2020-07-05 08:16] MED LIST changes: -ACET-1256 PO; -ASPI-319 PO; -ATOR10TA82 PO; -CALC600T9 PO; +CEFAZOLIN 1,000 MG/7.5 ML SYR IV SCH; +LACTATED RINGER'S 1,000 ML IV SCH; -LISI10TA PO; +LR 15ML/HR IV SCH; -[UNRECOGNIZED DRUG - CODE] PO
[2020-07-05] MEDS ORDERED: MIDAZOLAM HCL 1 MG/ML 2ML VIAL ONE (09:45)
[2020-07-05] MEDS ORDERED: fentaNYL citrate 100 MCG/2 ML VIAL ONE (09:45)
--- NOTE | 2020-07-05 10:39 | History & Physical Bridge Note ---
Date of Service July 05, 2020 History & Physical Bridge Note I have examined the patient, reviewed the History & Physical and in the interval since the performance of the History & Physical I have noted the following changes of clinical significance: no changes noted
[2020-07-05] MEDS ORDERED: methylPREDNISolone 1,000 MG in DEXTROSE 5% 250 ML IV ONE (12:30)
[2020-07-05] MEDS ORDERED: HEPARIN SOD (PORCINE) 1000 UNIT/ML ONE (12:45)
[2020-07-05] MEDS ORDERED: ePHEDrine sulfate 50 MG/ML SYR ONE (13:10)
[2020-07-05] MEDS ORDERED: PROPOFOL IV EMULSION 10 MG/ML 20 ML VIAL IV ONE (13:10)
[2020-07-05] MEDS ORDERED: ONDANSETRON INJ 2 MG/ML 2 ML VIAL ONE (13:10)
[2020-07-05] MEDS ORDERED: CISATRACURIUM BESYLATE IV SOLN 2 MG/ML 10 ML VIAL IV ONE (13:10)
[2020-07-05] MEDS ORDERED: LARYING-O-JET KIT (LTA) ONE (13:10)
[2020-07-05] MEDS ORDERED: LIDOCAINE HCL 2% 2 ML VIAL/AMP(20MG/ML) INFIL ONE (13:10)
[2020-07-05] MEDS ORDERED: PHENYLEPHRINE HCL 10 MG/ML VIAL ONE (13:10)
[2020-07-05] MEDS ORDERED: GLYCOPYRROLATE 0.2 MG/ML VIAL ONE (13:10)
[2020-07-05] MEDS ORDERED: NEOSTIGMINE METHYLSULFATE 5 MG/5 ML SYR ONE (13:10)
[2020-07-05] MEDS ORDERED: PROTAMINE SULFATE 10 MG/ML 5 ML VIAL ONE (13:10)
[2020-07-05] MEDS ORDERED: VISIPAQUE IV PRN (13:24)
[2020-07-05] MEDS ORDERED: ARISTA ABSORBABLE HEMOSTAT 3GM TOP ONE (13:24)
--- NOTE | 2020-07-05 13:34 | Post Operative Brief Note ---
Immediate Post Op Note v1 Date of Surgery July 05, 2020 Pre & Post Diagnosis Operation Date: 07/05/20 10:20 Pre-Op Diagnosis: thoracic aortic artery aneurysm Post-Op Diagnosis: thoracic aortic artery aneurysm I identified the patient and participated in the time-out.: Yes Procedure Operation Date: 07/05/20 10:20 Actual Procedures p Thoracic Endovascular Aneurysm Repair Extension, Percutaneous Access(Bilateral) - Quique Mccain MD Surgeon Quique Mccain MD Dental Detail Representative Domingo,PAC Estimated Blood Loss 10 Findings Consistent with Post-Op Diagnosis Anesthesia Type General Complications none Disposition Accompanied Patient To Recovery: No Disposition: Surgical ICU
[2020-07-05] MEDS ORDERED: PROMETHAZINE HCL 12.5 MG in SODIUM CHLORIDE 0.9% 50 ML IV PRN (14:06)
[2020-07-05] MEDS ORDERED: fentaNYL citrate 100 MCG/2 ML VIAL IV PRN (14:06)
[2020-07-05] MEDS ORDERED: ePHEDrine sulfate 50 MG/ML AMP IV PRN (14:06)
[2020-07-05] MEDS ORDERED: NALOXONE HCL 0.4 MG/1 ML VIAL/CARP IV PRN (14:06)
[2020-07-05] MEDS ORDERED: ATROPINE SULFATE 0.1 MG/ML 10ML SYR IV PRN (14:06)
[2020-07-05] MEDS ORDERED: ONDANSETRON INJ 2 MG/ML 2 ML VIAL IV PRN ×2 (14:06→14:34)
[2020-07-05] MEDS ORDERED: FLUMAZENIL 0.1 MG/1 ML 10 ML VIAL IV PRN (14:06)
[2020-07-05] MEDS ORDERED: D5W AND 1/2NSS 1,000 ML IV SCH (14:34)
[2020-07-05] MEDS ORDERED: oxyCODONE/ACETAMINOPHEN 5mg/325mg TAB PO PRN (14:34)
[2020-07-05 14:59] LABS: Hematocrit (blood only) 41.1 % (42-52); Hemoglobin 14.3 g/dL (14.0-18.0)
--- NOTE | 2020-07-05 15:38 | Critical Care Consultation ---
Date of Consultation July 05, 2020 Assessment & Plan (1) Thoracic aortic aneurysm: (2) Hypertension: (3) Hyperlipidemia: (4) Type 2 diabetes mellitus: Impression: 70-year-old male with prior history of type B dissection status post endovascular repair now with aneurysmal dilatation distal to the stent. He was taken to the OR today for extension of the endograft. He is in the ICU doing well clinically. Recommendations: 1. Thoracic aortic aneurysm status post endograft extension. Management per vascular surgery. He has a lumbar drain in place which will be deferred to vascular surgery as well. Continue neurological exams and maintenance of blood pressure per vascular surgery. 2. Diabetes: Patient received a large dose of steroids intraoperatively. He is reportedly 'controlled' with diet as an outpatient. We will continue glycemic control per ICU protocol. I think it is reasonable to discontinue the glucose and his IV fluids to prevent need for additional insulin at this point time. Preoperative hemoglobin A1c elevated at 7.4 3. Will await postoperative laboratory studies and adjust as needed. 4. DVT and GI prophylaxis per vascular surgery. 5. Hypertension: Restarting lisinopril and atenolol per vascular surgery. Would not recommend continued use of chlorthalidone in elderly patients due to risks of hyponatremia. Of note the patient's sodium preoperatively was 135. Given the hyponatremia preoperatively, would recommend use of normal saline rather than half-normal saline. 6. Preoperative hypercalcemia: Await postoperative labs. Patient was taking calcium and vitamin D as an outpatient and this may need to be adjusted. Discussed with patient and ICU nurse at bedside. Feel free to contact us with additional ICU concerns. History of Present Illness Attending Physician: Quique Mccain MD History of Present Illness Asked by vascular surgery to assist in critical care management of this patient status post endovascular repair of extension of previously stented thoracic aneurysm. History is obtained from review of the chart and discussion with the patient. Patient is a 70-year-old male with a history of diabetes hypertension hyperlipidemia and previous type B dissection stented in [facility] in 2011. He has been following here locally and on most recent CT scan was found to have a distal aneurysmal degeneration of the descending thoracic aorta just distal to the previously placed endograft. He was felt to be a candidate for extension of the thoracic endograft and was taken to the OR today where the above procedure was accomplished. He has a lumbar drain in place as well as an arterial line. He has no distinct sensory level currently and is hemodynamically stable. He feels well and denies chest pain palpitations cough or shortness of breath. Allergies Allergy/AdvReac Type Severity Reaction Status Date / Time gabapentin Allergy Intermediate Chest Verified 07/05/20 09:06 pain, SOB labetalol Allergy Intermediate Itching, Verified 07/05/20 09:06 rash losartan Allergy Intermediate Itching Verified 07/05/20 09:06 Thiazides Allergy Intermediate Severe Verified 07/05/20 09:06 itching Sulfa (Sulfonamide AdvReac Mild GI distress Verified 07/05/20 09:06 Antibiotics) Home Medications Medication Instructions Recorded Confirmed Type amoxicillin 500 mg capsule 500 mg PO QID PRN 03/02/19 07/05/20 History aspirin 81 mg tablet 81 mg PO QAM 03/02/19 07/05/20 History lisinopril 20 mg tablet 20 mg PO BID #180 tab 04/25/20 07/05/20 Rx atenolol-chlorthalidone 1 tab PO QAM 06/26/20 07/05/20 History atorvastatin 10 mg PO QAM 06/26/20 07/05/20 History calcium carbonate-vitamin D3 1 tab PO QAM 06/26/20 07/05/20 History [Calcium 600 + D(3)] Patient History Medical History Gout Hyperlipidemia Hypertension Lumbar degenerative disc disease Osteoarthritis, knee Pain management Knee + back injections (Dr. Blackwood) Seborrheic keratosis Thoracic aortic aneurysm s/p endovascular repair ([facility]), now with aneurysmal degeneration of the descending thoracic aorta distal to the previously placed endograft Type 2 diabetes mellitus Diet "control" > although most recent hgba1c 03/10/20 as elevated at 7.4% Urinary calculus Surgical History Amputation of right index finger Industrial accident H/O prostate biopsy History of aortic aneurysm repair TAA repair ([facility]) History of appendectomy History of bunionectomy Left foot History of cataract surgery R/L History of cholecystectomy History of colonoscopy History of lithotripsy Family History Brother Aneurysm of abdominal aorta Sister Cerebral aneurysm Father Diabetes Malignant melanoma of skin Mother No problems noted. Denies family history of Ovarian cancer Prostate cancer Breast cancer Colorectal cancer Social History Smoking Status: Former smoker Age Quit Using Tobacco: 30; packs per day: 2; Cigarettes Per Day: 40; Smoking End Date: 30 yrs ago; Second Hand Exposure: No; Do You Dip or Chew Tobacco: No; Tobacco Cessation Education Requested by Patient: No Hx Alcohol Use: No Hx Substance Use: No Preferred Language: Malay Communication Ability: Effective Visual Impairment: No Limitations Hearing Ability: Normal Frame Stylist Required: No Beliefs That Will Affect Care: None marital status: Current Living Situation: Spouse current occupational status: retired Other Information That Helps Us Care for You: No Feels Safe at Home: Yes Safety Concerns: Feels Safe At This Time Dental Care, Regularly: Yes Physical Activity Frequency: Does not Exercise Seatbelt Use: always Assistive Devices: Denture - Upper and Glasses Review of Systems Review of Systems: All systems reviewed & are unremarkable except as noted in HPI & below Physical Exam Constitutional: WD/WN, vitals as above Neck: trachea midline, no thyromegaly Respiratory: normal respiratory effort, lungs clear to auscultation Cardiovascular: RRR, no murmur, no edema Gastrointestinal (Abdomen): normal bowel sounds, soft, nontender, no hepatosplenomegaly Musculoskeletal: Extremities: extremities normal to inspection Skin: no rashes, warm and dry Neurologic: Nonfocal exam. No sensory level Lymphatic: no cervical lymphadenopathy Results & Data Results & Data ([facility]) Vital Signs (Past 12 Hours) Vital Signs Temp Pulse Resp BP BP Pulse Ox 07/05/20 14:29 62 18 127/66 148/58 H 99 07/05/20 14:20 63 20 130/70 136/46 L 97 07/05/20 14:10 65 14 121/65 155/45 H 95 07/05/20 14:00 66 15 136/72 138/46 L 97 07/05/20 13:50 36.6 C 75 17 136/72 141/48 H 96 07/05/20 08:40 36.9 C 57 L 20 136/81 97 Laboratory Results 07/05/20 14:40 06/30/20 11:18 Diagnostic Findings CTA chest independently reviewed CT angio chest wo/w con, CT abd pelvis wo con HISTORY: 70 years-old Male DISSECTION OF AORTA follow-up study in a patient with reported thoracic aortic dissection. COMPARISON: CTA chest 06/05/2018 TECHNIQUE: CTA of the chest was obtained both with and without the use of [address] abdomen and pelvis without contrast also obtained. 3-D coronal and sagittal MIPS were obtained from the axial data set and were submitted for review. All measurements were obtained according to NASCET criteria. A dose lowering technique was used consistent with the principals of KITTY. FINDINGS: CTA OF THE CHEST: The heart is normal in size. No pericardial effusion. Moderate coronary artery calcifications. Ascending thoracic aorta appears normal. Patency of the imaged great vessels. Prior stent repair of a type B aortic dissection. There is progressive dilation of the descending thoracic aorta measuring up to 5.6 cm transversely, previously 5.1 cm. Additionally, there is increased diameter of the contrast-filled saccular outpouching involving the posterior medial aspect of the mid descending thoracic aorta on image 159 now measuring 3.5 cm in transverse dimension, previously 2.7 cm. No aortic rupture or definite endoleak. The opacified pulmonary artery is unremarkable. CT CHEST: Unremarkable thyroid. There is no adenopathy. No pneumothorax, pleural effusion or overt pulmonary edema. Mild dependent right lung base groundglass densities suggestive of atelectasis. 7 mm subpleural solid nodule of the left lower lobe, image 150 is unchanged. There is an adjacent centrally calcified 6 mm solid nodule of the left lower lobe on image 149. A few additional unchanged solid pulmonary nodules of the lung bases measure up to 4 mm. Probable lymph node of the right lower lobe measures 1.3 cm, in retrospect previously measured 10 mm. Central airways are patent. Unremarkable soft tissues. No acute fracture or suspicious bone lesion. CT ABDOMEN AND PELVIS: The unenhanced spleen, pancreas and adrenal glands are unremarkable. Cholecystectomy. Numerous scattered hypodensities of the liver measure up to approximately 1.5 cm which appear similar to comparison, most of which suggest cysts. Hepatic steatosis. Mild nonspecific bilateral perinephric stranding. There are 2 punctate nonobstructing calculi of the interpolar right kidney. No hydronephrosis. Urinary bladder wall thickening with partial distention. Prostamegaly. Small fat filled right inguinal hernia. Moderate calcific plaque of the abdominal aorta. Chronic aortic dissection with mild aneurysmal dilation at the level of the renal artery origins measures up to 4.1 cm on image 367 measured in a oblique fashion, unchanged from 06/05/2018. No aneurysm rupture. Unchanged 11 mm saccular aneurysmal dilation of the right common iliac artery on image 322. Retroaortic left renal vein. No adenopathy. No bowel obstruction or bowel wall thickening. Colonic diverticulosis. No ascites or mesenteric inflammation. The appendix is not diagnostically visualized. Unremarkable soft tissues. Degenerative changes of the spine, pelvis and hips. IMPRESSION: 1. Chronic Michael type B dissection with prior stent repair. There is increased size of the fusiform aneurysmal dilation of the descending thoracic aorta now up to 5.6 cm, previously 5.1 cm with increased diameter of the contrast-filled saccular outpouching now measuring 3.5 cm, previously 2.7 cm. This is suggestive of increased size of the chronic false lumen. The abdominal aortic aneurysm is unchanged in size. 2. 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 3. Additional findings as above. Coding Level of Care Code 39843 Inpt Consult Level 5 Diagnoses Thoracic aortic aneurysm I71.2 Hypertension I10 Hyperlipidemia E78.5 Type 2 diabetes mellitus E11.9 Time Spent (min) 50
--- NOTE | 2020-07-05 15:38 | Anesthesiology Progress Note ---
Date of Service July 05, 2020 Anesthesia Post Procedure Vital Signs Vital Signs: Temp Pulse Resp BP BP Pulse Ox 07/05/20 14:29 62 18 127/66 148/58 H 99 07/05/20 14:20 63 20 130/70 136/46 L 97 07/05/20 14:10 65 14 121/65 155/45 H 95 07/05/20 14:00 66 15 136/72 138/46 L 97 07/05/20 13:50 36.6 C 75 17 136/72 141/48 H 96 07/05/20 08:40 36.9 C 57 L 20 136/81 97 Transfer of Care Handoff Completed per policy Notes Mental Status: alert / awake / arousable Patient Amnestic to Procedure: Yes Nausea / Vomiting: adequately controlled Pain: adequately controlled Airway Patency, RR, SpO2: stable & adequate BP & HR: stable & adequate Hydration State: stable & adequate Anesthetic Complications: no major complications apparent Notes: neurologically intact,moving DANIEL's; strength intact;no paresthesias
[2020-07-05] MEDS: SODIUM CHLORIDE 0.9% 1000ML 1,000 ML IV SCH (16:53)
[2020-07-05] MEDS: ceFAZolin 1000MG 1,000 MG/7.5 ML SYR IV SCH (19:35)
[2020-07-05] MEDS: lisinopril 20 MG TAB PO SCH (22:14)
[2020-07-06] MEDS: SODIUM CHLORIDE 0.9% 1000ML 1,000 ML IV SCH ×3 (01:06→12:06)
[2020-07-06] MEDS: ceFAZolin 1000MG 1,000 MG/7.5 ML SYR IV SCH (04:17)
[2020-07-06 05:27] LABS: Basophils # (auto) 0.01 K/uL (0-0.2); Basophils % (auto) 0.1 %; Hematocrit (blood only) 39.9 % (42-52); Hemoglobin 13.9 g/dL (14.0-18.0); Immature Granulocytes # (auto) 0.02 K/uL (0.00-0.02); Immature Granulocytes % (auto) 0.2 %; Lymphocytes # (auto) 1.19 K/uL (1.2-3.4); Lymphocytes % (auto) 10.3 %; Mean Corpuscular Hemoglobin 30.3 pg (25-34); Mean Corpuscular Hgb Conc 34.8 g/dL (32-36); Mean Corpuscular Volume 87.1 fL (80-100); Mean Platelet Volume 10.6 fL (7.4-10.4); Monocytes # (auto) 0.15 K/uL (0.11-0.59); Monocytes % (auto) 1.3 %; Neutrophils # (auto) 10.23 K/uL (1.4-6.5); Neutrophils % (auto) 88.1 %; Platelet Count 240 K/uL (130-400); RDW Coefficient of Variation 12.8 % (11.5-14.5); Red Blood Count 4.58 M/uL (4.7-6.1)
[2020-07-06 05:59] LABS: Calcium 8.2 mg/dl (8.5-10.1); Creatinine Clr Calc Pharmacy 102.5 ml/min; Est GFR (African American) 104.7; Est GFR (Non-African American) 90.3; Magnesium 1.9 mg/dl (1.8-2.4); Phosphorus 2.7 mg/dl (2.5-4.9); Potassium 3.5 mmol/L (3.5-5.1)
--- NOTE | 2020-07-06 08:01 | Anesthesiology Progress Note ---
Date of Service July 06, 2020 Assessment & Plan Admission and Anticipated Discharge Date Admission Date: July 05, 2020 Subjective Lumbar catheter was removed. Tip was intact. The patient denied any back pain or LE weakness. The patient was instructed to lay supine for 2 hours. Physical Exam Vital Signs: Last Vital Signs Temp 98.1 F 07/06/20 04:00 Pulse 66 07/06/20 06:00 Resp 18 07/06/20 06:00 BP 121/61 07/06/20 06:00 Pulse Ox 94 07/06/20 06:00 Results & Data ([place]) Medications Administered Sodium Chloride (Nss 1000ml) 1,000 mls @ 125 mls/hr IV .Q8H MANUELA Stop: 08/04/20 15:59 Last Admin: 07/06/20 01:06 Dose: 125 mls/hr Documented by: [id number] Infusion: 07/06/20 00:53 Dose: 125 mls/hr Documented by: [id number] Admin: 07/05/20 16:53 Dose: 125 mls/hr Documented by: [id number] Iodixanol (Visipaque) 115 ml IV UD PRN PRN Reason: Radiology Use Stop: 07/09/20 13:23 Last Admin: 07/05/20 13:25 Dose: 115 ml Documented by: [id number] Lisinopril (Lisinopril 20 Mg Tab) 20 mg PO BID MANUELA Stop: 08/04/20 20:59 Last Admin: 07/05/20 22:14 Dose: Not Given Documented by: [id number] Oxycodone/Acetaminophen (Oxycodone/Acetaminophen 5mg/325mg Tab) 1 - 2 tab PO Q4H PRN PRN Reason: Moderate Pain Stop: 07/19/20 14:33 Last Admin: 07/06/20 05:09 Dose: 1 tab Documented by: [id number]
--- NOTE | 2020-07-06 08:04 | Critical Care Progress Note ---
Date of Service July 06, 2020 Assessment & Plan (1) Thoracic aortic aneurysm: (2) Hypertension: (3) Hyperlipidemia: (4) Type 2 diabetes mellitus: Impression: 70-year-old male with prior history of type B dissection status post endovascular repair now with aneurysmal dilatation distal to the stent. He was taken to the OR 07/05 for extension of the endograft. He is in the ICU doing well clinically. Recommendations: 1. Thoracic aortic aneurysm status post endograft extension. Management per vascular surgery. Plans are to remove his lumbar drain today. Patient per vascular surgery 2. Diabetes: Glycemic control per ICU protocol. Preoperative hemoglobin A1c elevated at 7.4. Recommend he follow-up with his primary care provider as dietary modifications may be inadequate 3. Hypertension: Continue lisinopril and atenolol per vascular surgery. Discontinued chlorthalidone. Follow blood pressure. Could consider Norvasc if additional antihypertensives are needed. 4. Preoperative hypercalcemia: Now resolved Discussed with patient and ICU nurse at bedside. Critical care will sign off at this point time as his critical care issues appear to have resolved. Feel free to contact us if we can be of additional assistance. Admission and Anticipated Discharge Date Admission Date: July 05, 2020 Subjective Patient seen and examined. Discussed with critical care nurse at bedside. Patient has had an uneventful night. He states he did not sleep well due to being on his back and is complaining of some muscle stiffness. Otherwise he is done well. States he cannot really eat lying supine. Plans are to remove his lumbar drain today. Review of Systems Review of Systems: All systems reviewed & are unremarkable except as noted in HPI & below Physical Exam Constitutional: WD/WN, vitals as above Neck: trachea midline, no thyromegaly Respiratory: normal respiratory effort, lungs clear to auscultation Cardiovascular: RRR, no murmur, no edema Gastrointestinal (Abdomen): normal bowel sounds, soft, nontender, no hepatosplenomegaly Musculoskeletal: Extremities: extremities normal to inspection Skin: no rashes, warm and dry Lymphatic: no cervical lymphadenopathy Results & Data Results & Data ([facility]) Vital Signs (Past 12 Hours) Vital Signs Temp Pulse Resp BP Pulse Ox 07/06/20 06:00 66 18 121/61 94 07/06/20 05:30 74 12 94 07/06/20 05:00 71 12 124/69 94 07/06/20 04:30 71 14 94 07/06/20 04:00 36.7 C 67 19 128/65 95 07/06/20 03:30 69 19 94 07/06/20 03:00 68 19 122/64 94 07/06/20 02:30 69 17 94 07/06/20 02:00 68 18 121/63 95 07/06/20 01:30 66 17 95 07/06/20 01:00 66 21 128/63 95 07/06/20 00:30 74 16 96 07/06/20 00:00 36.8 C 73 16 127/73 94 07/05/20 23:30 68 19 95 07/05/20 23:00 70 17 134/67 95 07/05/20 22:30 71 21 96 07/05/20 22:00 71 16 117/62 96 07/05/20 21:30 74 18 95 07/05/20 21:00 69 14 128/65 95 07/05/20 20:30 72 16 95 07/05/20 20:00 36.7 C 76 20 132/70 95 Laboratory Results 07/06/20 05:02 07/06/20 05:02 Diagnostic Findings No new films Coding Level of Care Code 96301 Subseq Hosp Care Lvl 2 Diagnoses Thoracic aortic aneurysm I71.2 Hypertension I10 Hyperlipidemia E78.5 Type 2 diabetes mellitus E11.9
[2020-07-06] MEDS: lisinopril 20 MG TAB PO SCH (08:06)
[2020-07-06] MEDS ORDERED: ATENOLOL 50 MG TABLET PO SCH (09:00)
[2020-07-06] MEDS ORDERED: ATORVASTATIN 10 MG TAB PO SCH (09:00)
[2020-07-06] MEDS ORDERED: CHLORTHALIDONE 25 MG TAB PO SCH (09:00)
[2020-07-06] MEDS ORDERED: CALCIUM 600MG + VIT D 400 IU TAB PO SCH (09:00)
[2020-07-06] MEDS ORDERED: ASPIRIN 81 MG ECTAB PO SCH (09:00)
[2020-07-06] MEDS ORDERED: POTASSIUM CHLORIDE CRTAB 20 MEQ TABCR PO STA (10:08)
--- NOTE | 2020-07-06 14:42 | Surgery Progress Note ---
Date of Service July 06, 2020 Assessment & Plan (1) S/P endovascular aneurysm repair: Doing well. No neuro defecits. Will d/c today Admission and Anticipated Discharge Date Admission Date: July 05, 2020 Subjective No complaints. Denies leg weakness or numbness. Physical Exam Constitutional: WD/WN, vitals as above Cardiovascular: Rate/Rhythm: regular rate and regular rhythm Vessels: posterior tibial pulses present and dorsalis pedis pulses present Extremities: normal capillary refill Skin: + incision (puncture sites clean and dry) Neurologic: CN's II-XI intact bilaterally, moves all extremities and awake; no focal motor deficits Motor/Sensory: no sensory deficit Results & Data ([facility]) Vital Signs (Past 12 Hours) Vital Signs Temp Pulse Resp BP Pulse Ox 07/06/20 11:19 63 16 121/60 91 07/06/20 10:19 67 15 120/63 92 07/06/20 10:00 92 07/06/20 09:19 75 15 110/59 L 89 L 07/06/20 09:00 89 L 07/06/20 08:19 72 21 116/63 92 07/06/20 08:00 92 07/06/20 07:19 70 20 118/59 L 94 07/06/20 07:00 94 07/06/20 06:00 66 18 121/61 94 07/06/20 05:30 74 12 94 07/06/20 05:00 71 12 124/69 94 07/06/20 04:30 71 14 94 07/06/20 04:00 36.7 C 67 19 128/65 95 07/06/20 03:30 69 19 94 07/06/20 03:00 68 19 122/64 94
--- NOTE | 2020-07-07 09:12 | Discharge Summary ---
Date of Service July 07, 2020 Admission HPI Per Admitting Provider * Final Report * June 19, 2020 Name: YVETTE HERNANDEZ [facility] [place]: [id number] : 1950 Date of Service: 06/19/2020 Ivonne Pa MD [address] [place] [address] [place] [address] 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 As you know, he had an acute descending type B aortic dissection in 2011, which was treated down at [place] by Dr. Alyssa Mckinney. Since Dr. Mckinney his left and Yvette lives closer to [place], he has been following with us. He states that since we have last seen him, he has not had any acute health issues, though he does have continued osteoarthritis of his knees and low back. In relation to his aneurysm, he does have some upper thoracic back pain that he notes in his recliner from time to time. On physical exam, Mr. Hernandez is well-appearing. His blood pressure is 124/68 on the left and 118/64 on the right. He is saturating at 96% on room air. His lungs are clear. Heart rate is 63 with a regular rate and rhythm. He weighs 95.9 kilograms. His head is normocephalic, atraumatic. He is in no acute distress. His neck is supple. His chest rise is equal bilaterally. His abdomen is soft, nontender, nondistended. His radial pulses are 2+ bilaterally as are his femoral and posterior tibial pulses. On a CAT scan performed prior to today's appointment, he has aneurysmal degeneration of the descending thoracic aorta distal to the previously placed endograft. We discussed surgical options and the patient is agreeable to p roceeding with extension of the thoracic endograft. We will plan to do this in the coming weeks. If you have any questions or concerns regarding his care, please do not hesitate to contact us. Thank you for allowing us to participate in the care of your patient. #[id number] I saw and evaluated the patient. Discussed with the resident and agree with the resident's findings and plan as documented in the resident's note. Signature Line Electronic Signature on File CC: Ivonne Pa MD [address] [place], [place] [address]br[place] [id number] * Azucena Gunn MD Author Signature Dt/Tm: 06/26/2020 02:50 PM Resident Division of Vascular Surgery Electronically Reviewed/Signed by: Quique Mccain MD Cosigner Signature Dt/Tm: 06/20/2020 02:29 PM Office Equipment Technician Darrin Zabala [facility] [address], [address] [place] [address] RES /RMG Result Type: .Outpt Ltr Date of Service: June 19, 2020 00:00 EDT Authorization Status: Final Subject: Outpatient Letter Author or Import Date: MD Velia, Azucena Pérez on June 19, 2020 13:52 EDT Verified By: MD Kalyn, Quique Franco on June 20, 2020 14:29 EDT Encounter info: [id number], [place] [address], Clinic, 06/19/2020 - 06/19/2020 Contributor system: [id number] Admission Exam Per Admitting Provider On physical exam, Mr. Hernandez is well-appearing. His blood pressure is 124/68 on the left and 118/64 on the right. He is saturating at 96% on room air. His lungs are clear. Heart rate is 63 with a regular rate and rhythm. He weighs 95.9 kilograms. His head is normocephalic, atraumatic. He is in no acute distress. His neck is supple. His chest rise is equal bilaterally. His abdomen is soft, nontender, nondistended. His radial pulses are 2+ bilaterally as are his femoral and posterior tibial pulses. Principal Diagnosis 1. s/p endovascular extension of Thoracic Aortic Aneurysm Repair 2. Thoracic Aortic Aneurysm Discharge Exam Constitutional WD/WN, vitals as above Respiratory normal respiratory effort, lungs clear to auscultation Cardiovascular Rate/Rhythm: regular rate and regular rhythm Vessels: posterior tibial pulses present and dorsalis pedis pulses present Extremities: normal capillary refill Skin + incision (puncture sites clean and dry) Neurologic CN's II-XI intact bilaterally, moves all extremities and awake; no focal motor deficits Motor/Sensory: no sensory deficit Discharge Data Allergies Allergy/AdvReac Type Severity Reaction Status Date / Time gabapentin Allergy Intermediate Chest Verified 07/05/20 09:06 pain, SOB labetalol Allergy Intermediate Itching, Verified 07/05/20 09:06 rash losartan Allergy Intermediate Itching Verified 07/05/20 09:06 Thiazides Allergy Intermediate Severe Verified 07/05/20 09:06 itching Sulfa (Sulfonamide AdvReac Mild GI distress Verified 07/05/20 09:06 Antibiotics) Consultations 07/05/20 14:34 Consult Supervisor Solder Making Routine Procedures Performed Operation Date: 07/05/20 10:20 Actual Procedures p Thoracic Endovascular Aneurysm Repair Extension, Percutaneous Access(Homero ateral) - Quique Mccain MD Ordered Studies 07/05/20 07:07 EV endorepair dscnd thor aorta Routine Hospital Course (1) S/P endovascular aneurysm repair: Doing well POD #1. No neuro defecits. Will d/c home today Total Time Total Time Spent Total Time Spent (In Minutes): 0 Discharge Plan Discharge Items Patient Disposition: Home - Self-Care Reason For Visit: Thoracic Aortic Aneurysm Discharge Diagnosis: thoracic aortic aneurysm Activity: Per Instructions section Lifting: Gradually increase as tolerated Bathing Comment: may shower in 48 hours Non-emergency contact: Surgeon Call non-emergency contact if: your temperature is above 101.5, your wound has increased redness, your wound has increased drainage and your wound pain has increased Follow-up/Referrals: Ivonne Pa MD [Primary Care Provider] - 07/10/20 1:30 pm Diet: Carb Consistent or DM2 and Heart Healthy Addtl Attending Provider Instructions: SPECIAL CARE INSTRUCTIONS: Medications: * Continue to take your medications as directed. Incision/Puncture Site Care: * You will have an incision or puncture in each of your groins. Liquid glue will be used to seal your incisions/puncture site. This will lift off as the incisions/puncture sites heal. * If Liquid glue is not used, there will be small dressings covering your incisions. After you get home, you may remove the dressings and shower - allowing the warm soapy water to run over it. * Be sure to dry the sites well and keep them dry. * DO NOT SOAK IN A TUB/POOL/etc. UNTIL ALL SURGICAL SITES ARE HEALED. DO NOT REMOVE THE GLUE UNTIL THE INCISIONS HEAL. Restrictions: * Limit yourself to account services analyst activity for the first week. * You may walk and go up and down steps. * Avoid excessive bending or movement at the level of the incisions or punctures. Risks and Possible Complications: * Infection/Drainage/Bleeding - Drainage or bleeding from the incisions/puncture site should be minimal. If you have excessive bleeding or drainage, call our office ([phone]) right away. * Pain/Numbness - You may experience some mild pain or soreness at your incision sites. You may also have some numbness around the incisions or into the insides of your thighs. Bruising is normal and should resolve within 2 weeks. * Changes in Appetite or Bowel Habits - Mostly related to anesthesia and pain medication, some patients have reported decreased appetite and/or problems with constipation. These symptoms usually improve over a few weeks. Remembering to take an bezp-cje-hbjgser stool softener, as directed, will help you to avoid constipation. Call our office and seek emergent treatment if you develop: * Fever or chills * Have a temperature greater than 101 degrees F * Any redness or purulent drainage from your incisions or punctures * Severe abdominal, chest or back pain SKIN IRRITATION: * You may experience some redness and/or swelling in the area where radiation was administered. If any skin irritation occurs, please contact your family physician. You will be receiving a call from the Vascular Surgery Nurse after you are discharged. FOLLOW UP VISIT: It is important for you to keep your follow up appointments with your medical provider. Keep any scheduled doctor appointments. Call [phone] to schedule a follow up appointment if one not already scheduled. Pending Studies at Discharge: No Stand-Alone Forms: My [facility] [place] [employer], Smoking Cessation Medications and DC Order Prescriptions: New oxycodone-acetaminophen [Percocet] 5-325 mg tablet 1 tab PO Q6H PRN (Reason: pain) Qty: 10 RF: 0 Continued lisinopril 20 mg tablet 20 mg PO BID Qty: 180 RF: 3 amoxicillin 500 mg capsule 500 mg PO QID PRN (Reason: Other) RF: 0 aspirin 81 mg tablet 81 mg PO QAM RF: 0 calcium carbonate-vitamin D3 [Calcium 600 + D(3)] 600 mg(1,500mg) -200 unit Tablet 1 tab PO QAM RF: 0 atenolol-chlorthalidone 100-25 mg tablet 1 tab PO QAM RF: 0 atorvastatin 10 mg tablet 10 mg PO QAM RF: 0 Discharge Orders: Discharge Order (Routine); Ordered 07/06/20 Ordered By: Quique Mccain Admission Data Admit Date/Time: 07/05/20 11:24 Attending Provider: Quique Mccain Admit Provider: Quique Mccain Primary Care Provider: Ivonne Pa Other Providers: Aristides Nunn ; Andrey Morse ; Renny Payan ; Sea Fletcher ; Tanner Richardson ; Darnell Gomez ; Hima Shah Other Interventions: Discharge Summary Assessment (RN) Last Done: 07/06/20 16:10
--- NOTE | 2020-07-19 15:41 | Operative Report ---
Post Operative Report Pre & Post Diagnosis Operation Date: 07/05/20 10:20 Pre-Op Diagnosis: thoracic aortic artery aneurysm Post-Op Diagnosis: thoracic aortic artery aneurysm I identified the patient and participated in the time-out.: Yes Procedure Operation Date: 07/05/20 10:20 Actual Procedures p Thoracic Endovascular Aneurysm Repair Extension, Percutaneous Access(Bilateral) - Quique Mccain MD Surgeon Quique Mccain MD Process Safety Management Engineer Domingo,PAC Estimated Blood Loss 10 Findings Consistent with Post-Op Diagnosis Specimens none Anesthesia Type General Complications none Disposition Accompanied Patient To Recovery: No Disposition: Recovery Room Indications Patient is a 70-year-old gentleman who in the past had a thoracic aneurysm repaired in the vascularity. He subsequently developed an aneurysm just distal to the graft which has enlarged. Extension of the graft was recommended. I have discussed the risks options and benefits of the procedure with the patient. The patient understands the risks options and benefits and agrees to the procedure[place] [address] Procedure NoteSigned Patient: IRIS SHIN OAdmit Date: 07/18/20MR#: [id number] Phy: Quique Mccain M.D.Acct ID:[id number] Phy: Ministerio Hurtado MDBirth Date: 11/02/1930Fam Phy: Ministerio Hurtado MDAge: 89Location: ASUSex: M Room/Bed: cc: ~ *NOTICE TO RECEIVING DEMOCRAT/AGENCY This information is strictly Confidential and protected under [place] law. [place] law prohibits you from making any further disclosure of this information unless further disclosure is expressly permitted by the written consent of the person to whom it pertains or is authorized by law. A general authorization for the release of medical or other information is not sufficient for this purpose. Hospital accepts no responsibility if the information is made available to any other person, INCLUDING THE PATIENT. Angiogram Post Procedure Fluoroscopy Time (minutes): 6.7 Radiation (mGy): 245 Contrast: 170 Post Operative Report Pre & Post Diagnosis Operation Date: 07/18/20 10:50 Pre-Op Diagnosis: Abdominal Aortic Aneurysm Post-Op Diagnosis: Abdominal Aortic Aneurysm I identified the patient and participated in the time-out.: Yes Procedure Operation Date: 07/18/20 10:50 Actual Procedures p Percutaneous Endovascular Aortic Aneurysm Repair, Ultrasound localization of bilateral femoral artery, percutaneous approach, mechanical closure of bilateral femoral arteries(Bilateral) - Quique Mccain MD Surgeon Quique Mccain MD Process Safety Management Engineer Domingo,PAC Estimated Blood Loss 30 Findings Consistent with Post-Op Diagnosis Specimens none Anesthesia Type General Complications none Disposition Accompanied Patient To Recovery: No Disposition: Recovery Room Indications This is a 89-year-old male who has a abdominal aortic aneurysm which has enlarged over last months. Repair is recommended. I have discussed the risks options and benefits of the procedure with the patient. The patient understands the risks options and benefits and agrees to the procedure. Description of Procedure The patient was taken to the operating room and placed in supine position. After general anesthesia was accomplished the groins were prepped and draped in a sterile manner. The patient was identified and a timeout was performed. A puncture was made of the right common femoral artery. A 5 Cambodian sheath was inserted. Arteriography was performed showing the puncture to be in the common femoral artery proper. 2 Pro-glide devices were then placed in the right common femoral artery at 10:00 and 2:00. The sheath was exchanged an 8 Cambodian sheath. The artery was punctured on the left sidce and a 8 Cambodian sheath was inserted. An 035 Glidewire was inserted through the right groin. This was passed up into the thoracic aorta to the arch. Kumpe catheter was then passed over the wire. The wire was exchanged to a Suarez wire. The 8 Cambodian sheath was removed. The 8 Cambodian sheath was removed and using a 12 Cambodian 16 Cambodian dilators the puncture site was dilated. A 22 Cambodian dry seal sheath was then inserted. Pigtail was then passed up the left groin. Arteriography was performed location of the aneurysm/. A 34x10 Tag extension was then overlapped with the old graft and extended down below the aneurysm. The graft was deployed at that level. Arteriography then confirmed the positioning to cover the aneurysm. The graft was then ballooned. Completion angio showed no endoleaks and the aneuyrsm tot ally excluded. The 22 Cambodian sheath was then pulled and the proglide sutures tied. Added hemostasis was noted on the right side. The 5 albanian sheath was pulled from the left and pressure applied. Again active hemostasis was noted. Pressure dressings were then applied to the groins.The patient left the operation room in satisfactory condition and tolerated the procedure well. All needle and sponge counts were correct at the end of the procedure. Winsome Estrada Pac assisted due to lack of resident availability and was necessary for positioning, draping, retraction, wound closure deep layers, subcutaneous tissue, and skin closure and was necessary for assisting with the case. I attest to the content of the Intraoperative Record and any orders documented therein. Any exceptions are noted below.
== END 2020-07-06 16:48 | disposition home or self-care (01) | DRG 221 ==
LOC: ASU 08:16 → 1E 11:24
PROC: M.TEVAR (2020-07-05 10:20)

== ENCOUNTER 2021-08-08 07:43 | Observation (INO) ==
--- NOTE | 2021-07-05 11:31 | PAT Medication Instructions ---
Medication Instructions Date of Service July 05, 2021 Home Medications Medication Instructions Recorded lisinopril 20 mg tablet 20 mg PO BID #200 tab 03/06/21 ciprofloxacin HCl 500 mg tablet 500 mg PO BID 7 Days #14 tab 05/01/21 amoxicillin 500 mg capsule 500 mg PO QID PRN aspirin 81 mg tablet 81 mg PO QAM calcium carbonate 600 mg-vitamin D3 5 mcg (200 unit) tablet (Calcium 600 + D(3)) 1 tab PO QAM lisinopril 20 mg tablet 20 mg PO BID ciprofloxacin HCl 500 mg tablet 500 mg PO BID atenolol 100 mg-chlorthalidone 25 mg tablet 1 tab PO QAM atorvastatin 10 mg tablet 10 mg PO QAM Continue as directed ciprofloxacin HCl 500 mg tablet 500 mg PO BID amoxicillin 500 mg capsule 500 mg PO QID PRN (prior to dental procedures) DO NOT take the morning of surgery calcium carbonate 600 mg-vitamin D3 5 mcg (200 unit) tablet (Calcium 600 + D(3)) 1 tab PO QAM lisinopril 20 mg tablet 20 mg PO BID Take morning of surgery With a small sip of water, OTHERWISE NOTHING TO EAT OR DRINK AFTER MIDNIGHT: aspirin 81 mg tablet 81 mg PO QAM (continue as normal unless told otherwise by surgeon) atenolol 100 mg-chlorthalidone 25 mg tablet 1 tab PO QAM atorvastatin 10 mg tablet 10 mg PO QAM Take evening before surgery lisinopril 20 mg tablet 20 mg PO BID Other Notes If you have any questions please call us at [phone] or [phone] or [phone] or [phone]
--- NOTE | 2021-07-09 08:43 | Anesthesiology Consultation ---
Date of Service July 09, 2021 Assessment & Plan (1) Encounter for pre-operative examination: - COVID screening: Per assessment on 07/09: No known COVID-19 positive contacts or current COVID-19 related symptoms. Travel screen negative. Patient vaccinated. Surgeon arranging preop COVID testing. Awaiting results. - S/P TEVAR (07/05/20): Grade 2 view, MAC 3.0, ETT 8.0 at [facility] - Cardiology office visit (05/24/21): "Atherosclerotic disease: He does have documented atherosclerosis of his aorta, he does not have evidence of other disease elsewhere however it is likely that he has some degree. He does not christina ve any symptoms to suggest significant coronary artery disease and he remains quite active. He has no evidence of infarction on his electrocardiogram. I do not think further evaluation at this time is indicated in the absence of symptoms and he is on risk factor modification.. Hypertension: His blood pressure is somewhat elevated today and the systolic component although he tells me that it is normally 120-126 at home. Part of the systolic hypertension might be his bradycardia which is probably in part medication related. I think this is acceptable control.. Although he does have some risk due to the presence of atherosclerosis I think his risk is acceptable and I would proceed with surgery without further cardiac evaluation." - Check BSG AM DOS Chart Review Chart Review: Acceptable Risk for Surgery and Patient seen in Pre Admission Testing Teaching & Discussion Pre-Anesthesia Teaching/Discussion Notes: Instructed NPO after midnight before surgery,except medications with 15 cc of water. Medication instructions provid ed according to the PAT guidelines. History Surgery Operation Date: 08/08/21 12:25 Proposed Procedures p Right Total Knee Arthroplasty - Nico Blackwood MD Height/Weight Height: 6 ft Weight: 97.069 kg Allergies Allergy/AdvReac Type Severity Reaction Status Date / Time ciprofloxacin Allergy Intermediate Itching Verified 07/05/21 16:10 gabapentin Allergy Intermediate Chest Verified 07/04/21 08:02 pain, SOB labetalol Allergy Intermediate Itching, Verified 07/04/21 08:02 rash losartan Allergy Intermediate Itching Verified 07/04/21 08:02 Thiazides Allergy Intermediate Severe Verified 07/04/21 08:02 itching Sulfa (Sulfonamide AdvReac Mild GI distress Verified 07/04/21 08:02 Antibiotics) Medications Home Medications Medication Instructions Recorded Confirmed Last Taken amoxicillin 500 mg capsule 500 mg PO QID PRN 03/02/19 07/04/21 07/05/20 06:00 aspirin 81 mg tablet 81 mg PO QAM 03/02/19 07/04/21 07/05/20 06:00 calcium carbonate 600 mg-vitamin 1 tab PO QAM 06/26/20 07/04/21 07/04/20 06:00 D3 5 mcg (200 unit) tablet (Calcium 600 + D(3)) lisinopril 20 mg tablet 20 mg PO BID #200 tab 03/06/21 07/04/21 Unknown atenolol 100 mg-chlorthalidone 25 1 tab PO QAM 07/04/21 07/04/21 Unknown mg tablet atorvastatin 10 mg tablet 10 mg PO QAM 07/04/21 07/04/21 Unknown Past Medical History Medical History Degenerative arthritis of knee, bilateral Gout Hx Hyperlipidemia Hypertension Lumbar degenerative disc disease Osteoarthritis, knee Seborrheic keratosis Thoracic [place] [place] and extension of repair July [address] Mccain Type 2 diabetes mellitus diet controlled Urinary calculus Exercise / Class Metabolic Activity III < 4 Walking/Shop/Light housework Past Family History Family History Brother Aneurysm of abdominal aorta Sister Cerebral aneurysm Father Diabetes Malignant melanoma of skin Mother No problems noted. Denies family history of Ovarian cancer Prostate cancer Myocardial infarction Breast cancer Colorectal cancer Past Surgical History Surgical History Amputation of right index finger Industrial accident H/O prostate biopsy benign Heel spur removed> can't recall which foot History of aortic aneurysm repair [place] [place] TEVAR (07/05/20): Grade 2 view, MAC 3.0, ETT 8.0 at [facility] History of appendectomy History of bunionectomy Left foot with tendon repair History of cataract surgery R/L History of cholecystectomy History of colonoscopy History of lithotripsy S/P endovascular aneurysm repair (07/2020) extension of original repair July 2020 S/P epidural steroid injection Past Anesthesia History No Hx of Anesthesia Complications and No Family Hx of Anesthesia Complications History of PONV No Hx of PONV and No Hx of Motion Sickness Social History Smoking Status: Former smoker tobacco type: cigarettes Do You Dip or Chew Tobacco: No Smoking End Date: Quit 1980 (hx 2 PPD) Hx Alcohol Use: No Hx Substance Use: No substance use type: does not use Review of Systems Patient denies chest pain, shortness of breath, fever, chills, cough, wheezing, palpitations. Physical Exam Vital Signs VITALS BP 143/78 P 60 TEMP 97.9 SP02 99%RA RESP 16 PHYSICAL Full cervical extension range of motion. Full TMJ range of motion. TMD 3 finger breaths Mallampati Score 2 Dentition: full upper denture, lower sides/molars missing Lungs: clear throughout to auscultation Cardiac: regular rate and rhythm, no murmurs noted Spine: normal Carotid arteries: negative bruit Extremities: no edema Lab Results Anesthesia Preop Results Results Anesthesia Widget: WBC 8.77 K/uL (4.8-10.8) 07/09/21 Hgb 15.6 g/dL (14.0-18.0) 07/09/21 Hct 45.7 % (42-52) 07/09/21 Plt 346 K/uL (130-400) 07/09/21 Na 134 mmol/L (136-145) L 07/09/21 K 3.8 mmol/L (3.5-5.1) 07/09/21 Cl 98 mmol/L (98-107) 07/09/21 CO2 28 mmol/L (21-32) 07/09/21 BUN 23 mg/dl (6-23) 07/09/21 Creat 0.83 mg/dl (0.6-1.4) 07/09/21 Glucose Level 141 mg/dl (70-99(Fasting)) H 07/09/21 PT 11.0 Seconds (9.0-12.0) 07/09/21 PTT 27.2 Seconds (21.0-31.0) 07/09/21 INR 1.0 (0.9-1.1) 07/09/21 HA1c 7.6 % (4.5-5.6) H 07/09/21 Urine Color Yellow 05/22/21 Urine Appearance Clear (Clear) 05/22/21 Urine pH 5.0 (4.5-7.5) 05/22/21 Urine Specific [place] 1.016 (1.000-1.030) 05/22/21 Urine Protein Negative (Negative) 05/22/21 Urine Glucose (UA) Negative (Negative) 05/22/21 Urine Ketones Negative (Negative) 05/22/21 Urine Blood Negative (Negative) 05/22/21 Urine Nitrite Negative (Negative) 05/22/21 Urine Bilirubin Negative (Negative) 05/22/21 Urine Urobilinogen Negative (Negative) 05/22/21 Urine Leukocyte Esterase Trace (Negative) H 05/22/21 Urine WBC (Auto) 5-10 /hpf (0-5) H 05/22/21 Urine RBC (Auto) 0-4 /hpf (0-4) 05/22/21 Urine Hyaline Casts (Auto) 0 /lpf (0-5) 05/22/21 Urine Epithelial Cells (Auto) >30 /lpf (0-5) H 05/22/21 Urine Bacteria (Auto) Negative (Negative) 05/22/21 Blood Type O Positive 07/09/21 Antibody Screen NEGATIVE 07/09/21 Testing Laboratory Results Surgeon's office made aware of elevated HgbA1C* Electrocardiogram Date: 07/09/21 Sinus bradycardia 56 bpm. Chest X-Ray Date: 07/09/21 FINDINGS: PA and lateral chest radiographs are compared to study dated 07/03/2017 and correlated with chest CT dated 09/01/2020. The cardiomediastinal silhouette is unremarkable. A stent graft is again seen within the thoracic aorta. The lungs and pleural spaces are clear. There is no pneumothorax. The skeletal structures are osteopenic. The bony thorax appears intact. IMPRESSION: No active disease in the chest. Small pulmonary nodules seen on the 09/01/[address] cannot be evaluated by x-ray.
--- NOTE | 2021-08-04 12:25 | History and Physical Report ---
DATE OF ADMISSION: 08/08/2021 CHIEF COMPLAINT: Persistent right knee pain and discomfort. HISTORY OF PRESENT ILLNESS: The patient is a 71-year-old gentleman who presents for surgical treatme nt of his right knee. He has got a long history of bilateral knee pain and discomfort that has gradu ally gotten worse over the past several years. He has been through extensive conservative treatment, which has become less successful over time. The right knee bothers him more than the left. He has periods where he has trouble even getting around and has to use crutches. He is currently using a ca ne. His knees give out on him intermittently. He is having difficulty maintaining an active lifesty le. Of note, the patient does have a history of aortic aneurysm, followed by Dr. Mccain as well as people at [facility]. He also sees Dr. Castañeda for his heart and has been cleared from a cardiac standpoint. PAST MEDICAL HISTORY: 1. Hypertension. 2. Cardiac stent placement. 3. Arthritis. 4. Aortic aneurysm. PAST SURGICAL HISTORY: Includes, 1. Aortic aneurysm repair. 2. Appendectomy. 3. Bunionectomy. 4. Cataract surgery. 5. Cholecystectomy. 6. Prostate biopsy. 7. Index finger surgery. ALLERGIES: INCLUDE, 1. LABETALOL. 2. LOSARTAN. 3. DYAZIDE. 4. SULFA. 5. GABAPENTIN. CURRENT MEDICATIONS: Include, 1. Amoxicillin. 2. Aspirin. 3. Atenolol. 4. Chlorthalidone. 5. Atorvastatin. 6. Calcium with D. 7. Lisinopril. 8. Ciprofloxacin. SOCIAL HISTORY: A 71-year-old male. He is fairly active. Lives in [place]. He does not smoke. He is . FAMILY HISTORY: Noncontributory. REVIEW OF SYSTEMS: Significant for his aortic aneurysm, which is managed at [facility]. He also has a history of heart disease and cleared by Dr. Castañeda. Denies any chest pain or shortness of breath. No history of DVT or PE. PHYSICAL EXAMINATION: GENERAL: Shows a pleasant, healthy appearing middle-aged gentleman. HEENT: Benign. NECK: Supple. No lymphadenopathy. LUNGS: Clear to auscultation. HEART: Regular rate and rhythm. ABDOMEN: Soft, nontender, nondistended. EXTREMITIES: Grossly neurovascularly intact except as follows: Examination of the right knee reveal s the patient ambulates with the use of a cane. He has got fairly neutral to slight varus alignment to his knee. Tender over the medial joint line. Small knee effusion. Range of motion 5-125. No in stability. No pain with hip motion. X-RAYS: X-rays of the right knee were reviewed and it shows advanced right knee DJD. He has got tri compartmental disease. He has got complete loss of his medial joint space. He has got osteophytes i n all 3 compartments. He has got some loose bodies posteriorly. ASSESSMENT: A 71-year-old male with a significant medical history of cardiac disease and stent place ment, hypertension, aortic aneurysm repair with advanced knee degenerative joint disease. He has rosy led conservative treatment and would like to have his right knee replaced. PLAN: He has been seen by Dr. Castañeda and cleared for surgery from a cardiac standpoint. We will proceed with right knee replacement. The risks and benefits of this procedure were explained to the patient that include but not limited to DVT, PE, , infection, neurological injury, vascular inju ry, bleeding problem, pain, limited range of motion, stiffness, failure to relieve his symptoms, inco mplete relief of symptoms, need for further surgery in the future, etc. The patient understands and desires to proceed. Informed consent was obtained. As far as discharge plans, he is planning to be discharged to home with [facility] program . He knows to hold his lisinopril on the morning of surgery and take the atenolol. Job ID: [id number]
[~2021-08-08 07:43] MED LIST changes: +ACETAMINOPHEN 500 MG TAB PO SCH; +BUPIVACAINE 0.5 % 5 MG/1 ML PF 10ML VIAL ONE; +BUPIVACAINE LIPOSOME/PF 266 MG, BUPIVACAINE/EPINEPHRINE 50 ML, SODIUM CHLORIDE 0.9% 30 ... INFIL SCH; -CEFAZOLIN 1,000 MG/7.5 ML SYR IV SCH; +CeleBREX 200 MG CAP PO SCH; +FAMOTIDINE 20 MG TAB PO SCH; -LACTATED RINGER'S 1,000 ML IV SCH; -LR 15ML/HR IV SCH; +LR 500ML BOLUS, THEN 15ML/HR IV SCH; +LR 60ML/HR IV SCH; +METOCLOPRAMIDE HCL 10 MG TABLET PO SCH; +ROPIVACAINE 0.5% 5 MG/ML 30 ML VIAL ONE; +TRANEXAMIC ACID / 0.7% NACL 1,000 MG/100 ML BAG IV SCH; +ceFAZolin 2000MG 2,000 MG/15 ML SYR IV SCH
--- NOTE | 2021-08-08 08:57 | History & Physical Bridge Note ---
Date of Service August 08, 2021 History & Physical Bridge Note I have examined the patient, reviewed the History & Physical and in the interval since the performance of the History & Physical I have noted the following changes of clinical significance: no changes noted
[2021-08-08] MEDS ORDERED: PROPOFOL IV EMULSION 10 MG/ML 20 ML VIAL IV ONE (09:38)
[2021-08-08] MEDS ORDERED: MIDAZOLAM HCL 1 MG/ML 2ML VIAL ONE (09:38)
[2021-08-08] MEDS ORDERED: fentaNYL citrate 100 MCG/2 ML VIAL IV PRN (09:52)
[2021-08-08] MEDS ORDERED: ONDANSETRON INJ 2 MG/ML 2 ML VIAL IV PRN ×2 (09:52→14:08)
[2021-08-08] MEDS ORDERED: ATROPINE SULFATE 0.1 MG/ML 10ML SYR IV PRN (09:52)
[2021-08-08] MEDS ORDERED: ePHEDrine sulfate 50 MG/ML AMP IV PRN (09:52)
[2021-08-08] MEDS ORDERED: BUPIVACAINE/EPINEPHRINE 0.25% 1:200,000 30 ML VIAL ONE (11:00)
[2021-08-08] MEDS ORDERED: SODIUM CHLORIDE 0.9% PF 50 ML VIAL ONE (11:00)
[2021-08-08] MEDS ORDERED: BUPIVACAINE LIPOSOME 1.3% 266 MG/20 ML VIAL ONE (11:01)
--- NOTE | 2021-08-08 13:24 | Operative Report ---
PG Post Operative Report Pre & Post Diagnosis Operation Date: 08/08/21 10:35 Pre-Op Diagnosis: Right Knee Osteoarthritis Post-Op Diagnosis: Right Knee Osteoarthritis I identified the patient and participated in the time-out.: Yes Procedure Operation Date: 08/08/21 10:35 Actual Procedures p Right Total Knee Arthroplasty(Right) - Nico Blackwood MD Surgeon Nico Blackwood MD [employer] Leak Tester Sam Arroyo PA-C Estimated Blood Loss 50 Findings Consistent with Post-Op Diagnosis Operative findings were advanced right knee DJD. Extensive grade 4 [id number] disease and eburnation of the medial compartment. He had grade 4 changes of patellofemoral compartment. Very spotty grade 4 changes laterally. Varus deformity to his knee and about 10 degree flexion contracture. Fluids 750 cc Specimens Right knee sent for pathology Anesthesia Type Spinal MAC Complications none Disposition Accompanied Patient To Recovery: No Indications Patient 71-year-old gentleman said a long history of bilateral knee pain discomfort right side greater than left. Is been through extensive conservative care in the past which became less successful over time. X-rays show advanced knee arthritis. Elected proceed with surgical management. Description of Procedure Operative implants consist of: 1 Biomet Vanguard size 75 right posterior stabilized femoral component. 2. Biomet size 79 tibial tray. 3. 14 mm posterior stabilized polyethylene insert. 4. 34 x 8 and half all Paller patella. The patient was taken to the operating, identified, and placed on the operating table supine position protectors were properly padded. IV antibiotics tried by anesthesia team. A spinal anesthetic and abductor canal block had provided holding area. Murphy catheter was placed in sterile fashion a right thigh turn was then placed in the right lower extremity was then prepped and draped in usual sterile fashion. The right leg was elevated exsanguinated with use of an Esmarch and the tourniquet was set at 300 mmHg. An anterior approach of the right knee was then performed to longitudinal incision centered over the patella. Sharp dissection Through subcutaneous tissues down to the extensor mechanism. A medial parapatellar arthrotomy incision was made. Some subperiosteal dissection was carried out medially. The fat pad was dissected from the patella tendon. Lateral patellofemoral ligament was released. Patella subluxated laterally and the knee was flexed. The osteophytes were taken off distal femur. The ACL and PCL were then released from distal femur and the tibia subluxated anteriorly. External femoral alignment jig was then placed the interface the tibia and adjusted 16 mm medially. Proximal tibial cut was made removed by millimeter or 2 of bone from most deficient aspect medial tibial plateau. The tibia was then sized to a size 79. Attention drawn the femur. The distal femur was entered with a sharp drill. The intramedullary canal was suction. A right 6 degree valgus cutting guide was placed. The distal femoral cutting block was pinned in place. Distal femoral cut was made to take an additional 3 mm bone off distal femur. The femur was then sized to a size 75. We did downsize at least half a size. The cutting block was pinned parallel to the epicondylar axis which was 5 degrees of external rotation. The anterior cut, anterior chamfer, posterior cut, posterior chamfer cuts were made. The box cutting guide was placed in just slight lateral and the box cut was made. The knee was flexed. The remnants of the medial and lateral menisci were excised. The osteophytes were taken off the posterior aspect the femur. A trial femoral component was placed. The tibia was pinned in maximum external rotation and the drill and stem punch were used to create defect in proximal tibia for the tibial tray. The knee was then trialed and the 14 mm insert fit most appropriately. Attention drawn the patella. The patella was cleaned of all soft tissues. Patella thickness measured 25 mm in thickness and was cut down to 15. Was sized to a size 34 patella. The lug holes were drilled for the 34 patella. The lateral osteophyte was removed. The patella button was placed. Knee was taken through range of motion patella tracked nicely with no thumbs test. Attention drawn to placing the permanent components. All trial components were removed. Bone plug was placed in the distal femur limit blood loss. Double batch Palacos G cement was mixed. Biomet Vanguard size 75 right posterior stabilized femoral component, size 79 tibial tray, a 14 mm posterior stabilized polyethylene insert, and a 34 x 8 and half all Paller patella were then cemented in place. The knee was brought out into full extension total cement hardened. Final cement check was then performed. The pericapsular tissues were injected with total 100 cc of combination of 20 cc of Exparel, 30 cc normal saline, 50 cc of quarter percent Marcaine with epinephrine. Patient did receive 1 g of tranexamic acid. The tourniquet was then let down for final turn time 58 minutes. Hemostasis assured use electrocautery. The wound was once again irrigated. Extensor mechanism closed with combination 1 PDS suture #1 Vicryl suture in [id number] fashion with extensor mechanism checked to be intact and subcutaneous tissue then closed with 2 Dexon suture in a buried interrupted fashion skin was closed skin rom. Leg was then cleaned and dried and sterile dressed with Xeroform, 4 x 4's, sterile cast padding, Samuel bandage were applied. Patient then transferred to the recovery room in stable condition. Patient tolerated the procedure well and there were no complications. Sam Dudley, my physician assistant terminal manager, was present for the entire procedure. His assistance was required for proper patient positioning, prepping and draping, surgical exposure, retraction, perform the technical details the opera tion, placement of the implants, closure of the wound, placement of sterile bandage. I attest to the content of the Intraoperative Record and any orders documented therein. Any exceptions are noted below.
[2021-08-08] MEDS ORDERED: HYDROmorphone INJ 0.5 MG/0.5 ML SYR IV PRN (14:08)
[2021-08-08] MEDS ORDERED: METOCLOPRAMIDE HCL INJ 5 MG/ML 2 ML VIAL IV PRN (14:08)
[2021-08-08] MEDS ORDERED: MAGNESIUM HYDROXIDE SUSP 30 ML UDC PO PRN (14:08)
[2021-08-08] MEDS ORDERED: ALUMINUM/MAGNESIUM SUSP 30 ML UDC PO PRN (14:08)
[2021-08-08] MEDS ORDERED: bisacodyL 10 MG SUPP PR PRN (14:08)
[2021-08-08] MEDS ORDERED: oxyCODONE HCL IR 5 MG TAB (IMMEDIATE RELEASE) PO PRN (14:08)
[2021-08-08] MEDS ORDERED: NALOXONE HCL 0.4 MG/1 ML VIAL/CARP IV PRN (14:08)
[2021-08-08] MEDS ORDERED: ONDANSETRON 4 MG OD TAB PO PRN (14:08)
--- NOTE | 2021-08-08 14:55 | Anesthesiology Progress Note ---
Date of Service August 08, 2021 Anesthesia Post Procedure Vital Signs Vital Signs: Temp Pulse Pulse Resp BP Pulse Ox 08/08/21 14:30 61 24 113/71 96 08/08/21 14:15 60 23 111/64 95 08/08/21 14:00 62 17 119/76 94 08/08/21 13:55 36.3 C L 65 13 121/70 96 08/08/21 13:45 65 17 112/66 95 08/08/21 13:35 61 21 118/65 97 08/08/21 13:25 64 22 115/65 98 08/08/21 13:16 36.5 C 67 24 107/61 95 08/08/21 08:29 36.5 C 61 16 128/79 97 Transfer of Care Handoff Completed per policy Notes Mental Status: alert / awake / arousable and participated in evaluation Patient Amnestic to Procedure: Yes Nausea / Vomiting: adequately controlled Pain: adequately controlled Airway Patency, RR, SpO2: stable & adequate BP & HR: stable & adequate Hydration State: stable & adequate Neuraxial Anesthesia: was administered and sensory block is resolving Anesthetic Complications: no major complications apparent and Pt Satisfied with anesthetic care
[2021-08-08] MEDS: SODIUM CHLORIDE 0.9% 1000ML 1,000 ML IV SCH ×2 (15:13→23:54)
--- NOTE | 2021-08-08 15:37 | XRay Report ---
XR knee RT 1 or 2V routine CLINICAL HISTORY: Surgical Post Op. Status post knee replacement COMPARISON STUDY: No previous studies for comparison. TECHNIQUE: 2 right knee views FINDINGS: The patient is status post total knee replacement. The prosthetic components are in anatomi c alignment with no acute abnormality seen. Air is present within the soft tissues from the procedure . Skin rom are seen anteriorly. There is evidence for multiple small loose bodies within a popliteal cyst posteriorly. IMPRESSION: 1. Status post total knee replacement. ACT 112: Negative or not required by law. Electronically signed by: Maverick Ordoñez M.D. 08/08/2021 3:36 PM
[2021-08-08] MEDS: ACETAMINOPHEN 500 MG TAB PO SCH ×2 (15:54→22:47)
[2021-08-08] MEDS: KETOROLAC TROMETHAMINE 15 MG/ML VIAL IV SCH ×3 (15:55→23:51)
[2021-08-08] MEDS: ASCORBIC ACID 500 MG TAB PO SCH (17:57)
[2021-08-08] MEDS: ceFAZolin 2000MG 2,000 MG/15 ML SYR IV SCH (18:22)
[2021-08-08] MEDS ORDERED: TRANEXAMIC ACID / 0.7% NACL 1,000 MG/100 ML BAG IV SCH (19:15)
[2021-08-08] MEDS: ASPIRIN 81 MG ECTAB PO SCH (20:27)
[2021-08-08] MEDS: DOCUSATE SODIUM 100 MG CAP PO SCH (20:27)
[2021-08-08] MEDS: lisinopril 20 MG TAB PO SCH (20:28)
[2021-08-08] MEDS ORDERED: SENNA 8.6 MG TAB PO SCH (21:00)
[2021-08-09] MEDS: ceFAZolin 2000MG 2,000 MG/15 ML SYR IV SCH (03:45)
[2021-08-09] MEDS: ACETAMINOPHEN 500 MG TAB PO SCH (05:47)
[2021-08-09] MEDS: KETOROLAC TROMETHAMINE 15 MG/ML VIAL IV SCH ×2 (06:09→11:23)
[2021-08-09] MEDS: lisinopril 20 MG TAB PO SCH (07:31)
[2021-08-09] MEDS: ASCORBIC ACID 500 MG TAB PO SCH (07:31)
[2021-08-09] MEDS: DOCUSATE SODIUM 100 MG CAP PO SCH (07:31)
[2021-08-09] MEDS: ASPIRIN 81 MG ECTAB PO SCH (07:32)
[2021-08-09] MEDS ORDERED: dexAMETHasone 10 MG in SYRINGE 0 ML IV SCH (08:00)
[2021-08-09 08:37] LABS: Hematocrit (blood only) 41.8 % (42-52); Hemoglobin 14.1 g/dL (14.0-18.0); Mean Corpuscular Hemoglobin 29.8 pg (25-34); Mean Corpuscular Hgb Conc 33.7 g/dL (32-36); Mean Corpuscular Volume 88.4 fL (80-100); Mean Platelet Volume 10.6 fL (7.4-10.4); Platelet Count 278 K/uL (130-400); RDW Standard Deviation 41.9 fL (36.4-46.3); Red Blood Count 4.73 M/uL (4.7-6.1); White Blood Count 10.46 K/uL (4.8-10.8)
--- NOTE | 2021-08-09 08:39 | Progress Notes ---
DATE OF SERVICE: 08/09/2021 SUBJECTIVE: A 71-year-old gentleman, postoperative day 1 from a right knee replacement. He is doing pretty well. Pain rated at 3 and 4 at worst. No chest pain or shortness of breath. Not feeling diz zy or lightheaded. Feels like he is ready to go home. OBJECTIVE: VITAL SIGNS: Temperature 36.4. Vital signs are stable. PHYSICAL EXAMINATION: GENERAL: Shows a pleasant, elderly male. He is sitting up in his bedside chair, looks comfortable. LUNGS: Clear to auscultation. HEART: Regular rate and rhythm. ABDOMEN: Soft, nontender, nondistended. EXTREMITIES: Grossly neurovascularly intact except as follows: Examination of the right leg reveals the dressing to be clean, dry and intact. He can dorsiflex and plantarflex his foot appropriately. He is neurologically intact. LABORATORIES: Labs are pending. ASSESSMENT: A 71-year-old gentleman postoperative day 1 from a right knee replacement. He is doing well. His pain is controlled. He is neurologically intact. PLAN: 1. DVT prophylaxis includes thigh-high TEDs, SCDs, and aspirin twice a day. 2. PT, OT, weightbear as tolerated. Right total knee protocol. 3. Pain control, doing well with current pain regimen. 4. Disposition: Plan to discharge to home with some home health later today if he does okay in ther [employer]. Job ID: [id number]
[2021-08-09 08:56] LABS: Calcium 8.9 mg/dl (8.5-10.1); Creatinine Clr Calc Pharmacy 73.3 ml/min; Est GFR (African American) 86.8 ml/min; Est GFR (Non-African American) 74.9 ml/min; Potassium 3.4 mmol/L (3.5-5.1)
[2021-08-09] MEDS ORDERED: CHLORTHALIDONE 25 MG TAB PO SCH (09:00)
[2021-08-09] MEDS ORDERED: ATORVASTATIN 10 MG TAB PO SCH (09:00)
[2021-08-09] MEDS ORDERED: DOCUSATE SODIUM/SENNA 50/8.6MG TAB PO SCH (09:00)
[2021-08-09] MEDS ORDERED: ATENOLOL 50 MG TABLET PO SCH (09:00)
[2021-08-09] MEDS ORDERED: MULTIVITAMIN TAB PO SCH (09:00)
[2021-08-09] MEDS ORDERED: TAMSULOSIN HCL 0.4 MG CAP PO SCH (09:00)
[2021-08-09] MEDS ORDERED: CALCIUM 600MG + VIT D 400 IU TAB PO SCH (09:00)
== END 2021-08-09 12:31 | disposition home health service (06) ==
LOC: PACUINP 07:43 → ASU 07:43 → 3E 15:04